=== PATIENT | male | born 1950 | race Caucasian/White ===

== ENCOUNTER 2019-08-12 12:47 | Inpatient (IN) | payer OTHER ==
[2019-08-12 18:09] VITALS: BMI 21.1
--- NOTE | 2019-08-12 19:12 | HP ---
CIWA Score Nausea/Vomitin-Mild Nausea/No Vomiting Muscle Tremors: 4-Moderate,w/Arms Extend Anxiety: 3 Agitation: 2 Paroxysmal Sweats: No Perspiration Orientation: 0-Oriented Tacttile Disturbances: 1-Very Mild Itch/Numbness Auditory Disturbances: 0-None Visual Disturbances: 0-None Headache: 2-Mild CIWA-Ar Total Score: 13 - Admission Criteria OASAS Guidelines: Admission for Medically Managed Detox: Requires at least one of the followin. CIWA greater than 12 2. Seizures within the past 24 hours 3. Delirium tremens within the past 24 hours 4. Hallucinations within the past 24 hours 5. Acute intervention needed for co occurring medical disorder 6. Acute intervention needed for co occurring psychiatric disorder 7. Severe withdrawal that cannot be handled at a lower level of care (continued vomiting, continued diarrhea, abnormal vital signs) requiring intravenous medication and/or fluids 8. Patient presents the following: CIWA greater than 12 Admission Criteria Met: Admission criteria met Admission ROS [facility] Chief Complaint: Edinson Harper is presenting for alcohol detox. Allergies/Adverse Reactions: Allergies Allergy/AdvReac Type Severity Reaction Status Date / Time No Known Allergies Allergy Verified 08/12/19 17:58 History of Present Illness: Edinson Harper is presenting for alcohol detox. Alcohol: 1 pint - 1 L per day. Started drinking at 18. Starting drinking heavily in 40s. Last drink was yesterday. Denies seizures, blackout. States he has fallen during intoxication. Denies head hits. States that he has trouble sleeping and uses alcohol to sleep. States has poor appetite secondary to alcohol use. Denies other substances. Has been detox in the past. Completed rehab. Prior detox and rehab was several months prior at [facility]. Utox: + for MET, BZO Medical History: HTN, Hypothyroid, arthritis, asthma/COPD, gout Social: lives in apartment, has a roommate. Has sister who he is in contact with. Family: Mother due to heart condition Smokinppd since age 29. Exam Limitations: No Limitations - Ebola screening Have you traveled outside of the country in the last 21 days: No Have you had contact with anyone from an Ebola affected area: No Do you have a fever: No - Review of Systems Constitutional: Chills, Loss of Appetite EENT: reports: No Symptoms Reported Respiratory: reports: No Symptoms reported Cardiac: reports: No Symptoms Reported GI: reports: Nausea : reports: No Symptoms Reported Musculoskeletal: reports: No Symptoms Reported Integumentary: reports: Pruritus Neuro: reports: Headache Endocrine: reports: No Symptoms Reported Hematology: reports: No Symptoms Reported Psychiatric: reports: Agitated, Anxious Patient History - Patient Medical History Hx Anemia: No Hx Asthma: Yes Hx Chronic Obstructive Pulmonary Disease (COPD): Yes Hx Cancer: No Hx Cardiac Disorders: No Hx Congestive Heart Failure: No Hx Hypertension: Yes Hx Hypercholesterolemia: No Hx Pacemaker: No HX Cerebrovascular Accident: No Hx Seizures: No Hx Dementia: No Hx Diabetes: No Hx Gastrointestinal Disorders: No Hx Liver Disease: No Hx Genitourinary Disorders: No Hx Sexually Transmitted Disorders: No Hx Renal Disease (ESRD): No Hx Thyroid Disease: Yes (hypothyroid) Hx Human Immunodeficiency Virus (HIV): No Hx Hepatitis C: No Hx Depression: Yes Hx Suicide Attempt: No Hx Bipolar Disorder: No Hx Schizophrenia: No - Patient Surgical History Hx Neurologic Surgery: No Hx Cataract Extraction: No Hx Cardiac Surgery: No Hx Lung Surgery: No Hx Breast Surgery: No Hx Breast Biopsy: No Hx Abdominal Surgery: No Hx Appendectomy: No Hx Cholecystectomy: No Hx Genitourinary Surgery: No Hx Section: No Hx Orthopedic Surgery: No Hx Hysterectomy: No - PPD History Previous Implant?: Yes Documented Results: Negative w/o proof - Smoking Cessation Smoking history: Current every day smoker Have you smoked in the past 12 months: Yes Aproximately how many cigarettes per day: 20 Initiated information on smoking cessation: Yes 'Breaking Loose' booklet given: 08/12/19 - Substance & Tx. History Hx Alcohol Use: Yes Substance Use Type: Alcohol - Substances abused Alcohol Substance route: Oral Frequency: Daily Amount used: 1 pint to 1 liter of rum. Age of first use: 18 Date of last use: 08/12/19 Admission Physical Exam BHS - Vital Signs Vital Signs: Vital Signs - 24 hr 08/12/19 17:57 Temperature 97.3 F L Pulse Rate 85 Respiratory 16 Rate Blood Pressure 148/101 H - Physical General Appearance: Yes: Disheveled, Mild Distress, Tremorous HEENTM: Yes: Hearing grossly Normal, Normocephalic, Normal Voice, CHRISTIAN Respiratory: Yes: Chest Non-Tender, Decreased Breath Sounds, No Respiratory Distress, No Accessory Muscle Use Neck: Yes: No masses,lesions,Nodules, Trachea in good position Breast: Yes: Breast Exam Deferred Cardiology: Yes: Regular Rate, S1, S2, Irregular Abdominal: Yes: Normal Bowel Sounds, Non Tender, Soft, Distended Genitourinary: Yes: Within Normal Limits Musculoskeletal: Yes: full range of Motion Extremities: Yes: Non-Tender, Other (dry planatar side of feet) Neurological: Yes: nursing officer II-XII NML intact, Fully Oriented, Alert, Motor Strength 5/5, Normal Mood/Affect Integumentary: Yes: Dry, Other (dry planatar side of feet) - Diagnostic (1) Alcohol withdrawal Current Visit: Yes Status: Acute (2) Hypertension Current Visit: Yes Status: Acute (3) Hypothyroid Current Visit: Yes Status: Acute (4) Gout Current Visit: Yes Status: Acute (5) Asthma Current Visit: Yes Status: Acute (6) COPD (chronic obstructive pulmonary disease) Current Visit: Yes Status: Acute (7) 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
--- NOTE | 2019-08-12 19:30 | PN ---
Teaching Attending Note Name of Resident: Edinson Guaman ATTENDING PHYSICIAN STATEMENT I saw and evaluated the patient. I reviewed the resident's note and discussed the case with the resident. I agree with the resident's findings and plan as documented. SUBJECTIVE: 68 yo with HT, hypoT, gout, asthma/COPD here for alcohol detox. Started drinking at age 18. Pt drinks several beers a day. [facility]. Says he needs to stop drinking and start eating again- getting his life back. OBJECTIVE: Vital Signs - 24 hr 08/12/19 17:57 Temperature 97.3 F L Pulse Rate 85 Respiratory 16 Rate Blood Pressure 148/101 H tremulous alert and oriented ASSESSMENT AND PLAN: alcohol detox protocol for alcohol use disorder- lower dose of librium- pt elderly and thin habitus
[2019-08-12] MEDS ORDERED: MAGNESIUM CITRATE 300 ML BOTTLE PO PRN (19:43)
[2019-08-12] MEDS ORDERED: MAG HYDROX/AL HYDROX/SIMETH 30 ML UNIT-DOSE CUP PO PRN (19:43)
[2019-08-12] MEDS ORDERED: IBUPROFEN 400 MG TABLET (FP) PO PRN (19:43)
[2019-08-12] MEDS ORDERED: MAGNESIUM HYDROX 2400MG/30ML ORAL SUSPENSION 30 ML CUP PO PRN (19:43)
[2019-08-12] MEDS ORDERED: METHOCARBAMOL 500 MG TABLET PO PRN (19:43)
[2019-08-12] MEDS ORDERED: hydrOXYzine PAMOATE 25 MG CAPSULE (FP) PO PRN (19:43)
[2019-08-12] MEDS ORDERED: MENTHOL/PHENOL 1 EACH UD MM PRN (19:43)
[2019-08-12] MEDS ORDERED: ACETAMINOPHEN 325 MG TABLET (FP) PO PRN ×2 (19:43)
[2019-08-12] MEDS ORDERED: ALBUTEROL SULFATE PO PRN (19:49)
[2019-08-12] MEDS: ATORVASTATIN CA 10 MG TABLET (FP) PO SCH (21:07)
[2019-08-12] MEDS: chlordiazePOXIDE HCL 25 MG CAPSULE PO PRN (21:07)
[2019-08-12] MEDS ORDERED: PATIENT'S OWN MEDICATION (NON-FORMULARY) (Lovastatin [Lovastatin] 20 MG) PO SCH (22:00)
[2019-08-12] MEDS: chlordiazePOXIDE HCL 25 MG CAPSULE PO SCH (22:04)
[2019-08-12] MEDS: CALAMINE 8% TOPICAL LOTION 177 ML BOTTLE TP SCH (22:04)
[2019-08-12] MEDS: THIAMINE HCL 100 MG TABLET (FP) PO SCH (22:04)
[2019-08-13] MEDS: chlordiazePOXIDE HCL 25 MG CAPSULE PO SCH ×4 (07:20→22:00)
[2019-08-13] MEDS: LEVOTHYROXINE NA 88 MCG TABLET (FP) PO SCH (07:21)
[2019-08-13] MEDS ORDERED: metoPROLOL SUCCINATE 25 MG TAB.SR.24H (FP) PO SCH (10:00)
[2019-08-13] MEDS ORDERED: TIOTROPIUM BROMIDE PO SCH (10:00)
[2019-08-13] MEDS: TIOTROPIUM BROMIDE 2.5 MCG (SPIRIVA) RESPIMAT INHALER IH SCH (10:29)
[2019-08-13] MEDS: PRENATAL VITAMINS W/ FOLIC ACID TABLET (FP) PO SCH (10:29)
[2019-08-13] MEDS: ALLOPURINOL 100 MG TABLET (FP) PO SCH (10:29)
[2019-08-13] MEDS: CALAMINE 8% TOPICAL LOTION 177 ML BOTTLE TP SCH ×2 (10:29→22:00)
[2019-08-13] MEDS: NICOTINE 21 MG/24 HOURS TOPICAL PATCH TD SCH (10:30)
[2019-08-13] MEDS: BISMUTH SUBSALICYLATE 524 MG/30 ML UD PO PRN (10:32)
--- NOTE | 2019-08-13 10:42 | EKG ---
Test Reason : Blood Pressure : / mmHG Vent. Rate : 101 BPM Atrial Rate : 101 BPM P-R Int : 124 ms QRS Dur : 084 ms QT Int : 368 ms P-R-T Axes : 085 -88 076 degrees QTc Int : 477 ms SINUS TACHYCARDIA RIGHT ATRIAL ENLARGEMENT LEFT AXIS DEVIATION PULMONARY DISEASE PATTERN ABNORMAL ECG NO PREVIOUS ECGS AVAILABLE Confirmed by LOWELL BRANDON MD ([id number]) on 08/13/2019 10:42:32 AM Referred By: LENARD BLOOD Confirmed By:LOWELL BRANDON MD
[2019-08-13 11:18] LABS: ALBUMIN 3.2 g/dl (3.4-5.0); BILIRUBIN,TOTAL 0.5 mg/dL (0.2-1); BLOOD UREA NITROGEN 19.2 mg/dL (7-18); CALCIUM 8.3 mg/dL (8.5-10.1); CREATININE 2.1 mg/dL (0.55-1.3); POTASSIUM 3.3 mmol/L (3.5-5.1); TOT PROT 6.8 g/dl (6.4-8.2)
[2019-08-13] MEDS ORDERED: DICYCLOMINE HCL 20 MG TABLET PO ONE (11:18)
[2019-08-13] MEDS ORDERED: LOPERAMIDE HCL 2 MG CAPSULE PO ONE ×2 (11:19→16:45)
[2019-08-13 11:23] LABS: HEMOGLOBIN 13.2 GM/dL (11.7-16.9); MCH 32.7 pg (25.7-33.7); MCHC 32.9 g/dl (32.0-35.9); MEAN CELL VOLUME 99.4 fl (80-96); MEAN PLT VOLUME 9.9 fl (7.5-11.1); PLATELET COUNT 127 K/MM3 (134-434); RBC 4.02 M/mm3 (4.00-5.60); RDW 17.5 % (11.9-15.9); WHITE BLOOD COUNT 5.7 K/mm3 (4.0-10.0)
--- NOTE | 2019-08-13 11:23 | PN ---
[facility] CIWA - CIWA Score Nausea/Vomitin-No Nausea/No Vomiting (diarrhea) Muscle Tremors: 4-Moderate,w/Arms Extend Anxiety: 4-Mod. Anxious/Guarded Agitation: 3 Paroxysmal Sweats: 2 Orientation: 1-Uncertain about Date Tacttile Disturbances: 0-None Auditory Disturbances: 0-None Visual Disturbances: 0-None Headache: 0-None Present CIWA-Ar Total Score: 14 S Progress Note (SOAP) Subjective: 68 years old male admitted on 08/12/19 for alcohol withdrawal sx management diarrhea imodium 4 mg x 1 now discontinue MOM and Citrix encourage maalox bentyle 20 mg po x 1 hold metoprolol when systolic below 110 Objective: 08/13/19 11:26 Vital Signs Temperature 98.8 F 08/13/19 09:46 Pulse Rate 54 L 08/13/19 09:46 Respiratory Rate 18 08/13/19 09:46 Blood Pressure 101/71 08/13/19 09:46 O2 Sat by Pulse Oximetry (%) Laboratory Last Values Sodium 136 mmol/L (136-145) 08/13/19 07:45 Potassium 3.3 mmol/L (3.5-5.1) L 08/13/19 07:45 Chloride 97 mmol/L (98-107) L 08/13/19 07:45 Carbon Dioxide 30 mmol/L (21-32) 08/13/19 07:45 Anion Gap 9 MMOL/L (8-16) 08/13/19 07:45 BUN 19.2 mg/dL (7-18) H 08/13/19 07:45 Creatinine 2.1 mg/dL (0.55-1.3) H 08/13/19 07:45 Est GFR (CKD-EPI)AfAm 36.65 08/13/19 07:45 Est GFR (CKD-EPI)NonAf 31.62 08/13/19 07:45 Random Glucose 105 mg/dL (74-106) 08/13/19 07:45 Calcium 8.3 mg/dL (8.5-10.1) L 08/13/19 07:45 Total Bilirubin 0.5 mg/dL (0.2-1) 08/13/19 07:45 AST 29 U/L (15-37) 08/13/19 07:45 ALT 20 U/L (13-61) 08/13/19 07:45 Alkaline Phosphatase 70 U/L (45-117) 08/13/19 07:45 Total Protein 6.8 g/dl (6.4-8.2) 08/13/19 07:45 Albumin 3.2 g/dl (3.4-5.0) L 08/13/19 07:45 lab noted increase oral fluid low K+ K+ supplement Assessment: 08/13/19 11:28 alcohol withdrawal sx bentyl 20 mg po x 1 imodium 4 mg po x 1 Plan: continue librium detox regimen K+ supplement
[2019-08-13] MEDS ORDERED: POTASSIUM CHLORIDE TABS 20 MEQ TABLET.ER (FP) PO SCH (11:30)
[2019-08-13] MEDS: POTASSIUM CHLORIDE ORAL LIQUID 20 MEQ/15 ML PO SCH ×2 (13:39→22:00)
[2019-08-13] MEDS: RANITIDINE HCL 150 MG TABLET (FP) PO SCH ×2 (13:39→22:00)
[2019-08-13] MEDS ORDERED: TRIMETHOBENZAMIDE HCL 200MG/2ML INJ IM ONE (14:00)
--- NOTE | 2019-08-13 18:16 | CONSULT ---
[facility] Psychiatric Consult - Data Date of interview: 08/13/19 Admission source: [facility] Identifying data: First admission to [facility] for this 68 y/o AA male self- referred for detoxification (alcohol). Seen at [address] [place] [address]. Patient is single, no dependents, domiciled, unemployed and supported on SSI benefits. Substance Abuse History: Discussed with the patient. Details in current [facility] report as follows : Smoking history: Current every day smoker. Have you smoked in the past 12 months: Yes. Aproximately how many cigarettes per day: 20. Initiated information on smoking cessation: Yes. 'Breaking Loose' booklet given : 08/12/19. - Substance & Tx. History. Hx Alcohol Use: Yes. Substance Use Type: Alcohol. - Substances abused. Alcohol. Substance route: Oral. Frequency: Daily. Amount used: 1 pint to 1 liter of rum. Age of first use: 18. Date of last use: 08/12/19 Medical History: Medical profile is remarkable for bronchial asthma, hypertension, hypothyroidism, arthritis, COPD and gout. Psychiatric History: No reported history of psychiatric hospitalizations. Patient denies history of suicide attempts. No prior history of treatment with psychotropic medications. Physical/Sexual Abuse/Trauma History: Patient denies. Additional Comment: Urine drug screen results: MET-Methamphetamine, BZO- Benzodiazepines. Noted. Mental Status Exam - Mental Status Exam Alert and Oriented to: Time, Place Cognitive Function: Good Patient Appearance: Unkempt, Disheveled Mood: Withdrawn, Apprehensive (about having sudden bowel movements) Affect: Appropriate, Mood Congruent Patient Behavior: Fatigued, Appropriate, Cooperative Speech Pattern: Clear, Appropriate Voice Loudness: Normal Thought Process: Intact, Goal Oriented Thought Disorder: Not Present Hallucinations: Denies Suicidal Ideation: Denies Homicidal Ideation: Denies Insight/Judgement: Fair Sleep: Fair Appetite: Fair (fair appetite but concerned about eating because of vomiting + diarrhea) Gait/Station: Other (slow and unsteady) Psychiatric Findings - Problem List ([place] 1, 2,3) (1) Alcohol withdrawal Current Visit: Yes Status: Acute (2) Insomnia Current Visit: Yes Status: Chronic - Initial Treatment Plan Initial Treatment Plan: Psychoeducation. Sleep hygiene. Support and reassurance. Detoxification. Insomnia is addressed with melatonin at bedtime. Side effects/benefits reviewed with patient. Gave verbal consent to MD. Diaz.
[2019-08-13] MEDS: ATORVASTATIN CA 10 MG TABLET (FP) PO SCH (21:59)
[2019-08-13] MEDS: THIAMINE HCL 100 MG TABLET (FP) PO SCH (21:59)
[2019-08-14] MEDS: LEVOTHYROXINE NA 88 MCG TABLET (FP) PO SCH (06:06)
[2019-08-14] MEDS: chlordiazePOXIDE HCL 25 MG CAPSULE PO SCH ×4 (06:06→22:04)
[2019-08-14] MEDS: TIOTROPIUM BROMIDE 2.5 MCG (SPIRIVA) RESPIMAT INHALER IH SCH (10:54)
[2019-08-14] MEDS: PRENATAL VITAMINS W/ FOLIC ACID TABLET (FP) PO SCH (10:55)
[2019-08-14] MEDS: NICOTINE 21 MG/24 HOURS TOPICAL PATCH TD SCH (10:55)
[2019-08-14] MEDS: POTASSIUM CHLORIDE ORAL LIQUID 20 MEQ/15 ML PO SCH ×2 (10:55→22:07)
[2019-08-14] MEDS: RANITIDINE HCL 150 MG TABLET (FP) PO SCH ×2 (10:56→22:04)
[2019-08-14] MEDS: metoPROLOL SUCCINATE 25 MG TAB.SR.24H (FP) PO SCH (10:56)
[2019-08-14] MEDS: CALAMINE 8% TOPICAL LOTION 177 ML BOTTLE TP SCH ×2 (10:56→22:06)
[2019-08-14] MEDS: ALLOPURINOL 100 MG TABLET (FP) PO SCH (10:56)
[2019-08-14] MEDS: BISMUTH SUBSALICYLATE 524 MG/30 ML UD PO PRN ×2 (11:09→14:04)
--- NOTE | 2019-08-14 11:15 | PN ---
S CIWA - CIWA Score Nausea/Vomitin-Mild Nausea/No Vomiting Muscle Tremors: 2 Anxiety: 2 Agitation: 2 Paroxysmal Sweats: 1-Minimal Palms Moist Orientation: 0-Oriented Tacttile Disturbances: 1-Very Mild Itch/Numbness Auditory Disturbances: 0-None Visual Disturbances: 0-None Headache: 2-Mild CIWA-Ar Total Score: 11 S Progress Note (SOAP) Subjective: report last vomited "yesterday" last diarrhea "last night" ate breakfast request diatician diatician referral Objective: 08/14/19 11:17 Vital Signs Temperature 97.4 F L 08/14/19 09:23 Pulse Rate 102 H 08/14/19 09:23 Respiratory Rate 20 08/14/19 09:23 Blood Pressure 95/63 08/14/19 09:23 O2 Sat by Pulse Oximetry (%) Laboratory Last Values WBC 5.7 K/mm3 (4.0-10.0) 08/13/19 07:45 RBC 4.02 M/mm3 (4.00-5.60) 08/13/19 07:45 Hgb 13.2 GM/dL (11.7-16.9) 08/13/19 07:45 Hct 40.0 % (35.4-49) 08/13/19 07:45 MCV 99.4 fl (80-96) H 08/13/19 07:45 MCH 32.7 pg (25.7-33.7) 08/13/19 07:45 MCHC 32.9 g/dl (32.0-35.9) 08/13/19 07:45 RDW 17.5 % (11.9-15.9) H 08/13/19 07:45 Plt Count 127 K/MM3 (134-434) L 08/13/19 07:45 MPV 9.9 fl (7.5-11.1) 08/13/19 07:45 Sodium 136 mmol/L (136-145) 08/13/19 07:45 Potassium 3.3 mmol/L (3.5-5.1) L 08/13/19 07:45 Chloride 97 mmol/L (98-107) L 08/13/19 07:45 Carbon Dioxide 30 mmol/L (21-32) 08/13/19 07:45 Anion Gap 9 MMOL/L (8-16) 08/13/19 07:45 BUN 19.2 mg/dL (7-18) H 08/13/19 07:45 Creatinine 2.1 mg/dL (0.55-1.3) H 08/13/19 07:45 Est GFR (CKD-EPI)AfAm 36.65 08/13/19 07:45 Est GFR (CKD-EPI)NonAf 31.62 08/13/19 07:45 Random Glucose 105 mg/dL (74-106) 08/13/19 07:45 Calcium 8.3 mg/dL (8.5-10.1) L 08/13/19 07:45 Total Bilirubin 0.5 mg/dL (0.2-1) 08/13/19 07:45 AST 29 U/L (15-37) 08/13/19 07:45 ALT 20 U/L (13-61) 08/13/19 07:45 Alkaline Phosphatase 70 U/L (45-117) 08/13/19 07:45 Ammonia 41.40 umol/L (11-32) H 08/13/19 11:45 Total Protein 6.8 g/dl (6.4-8.2) 08/13/19 07:45 Albumin 3.2 g/dl (3.4-5.0) L 08/13/19 07:45 RPR Titer Nonreactive (NONREACTIVE) 08/13/19 07:45 HIV 1&2 Antibody Screen Negative 08/13/19 07:45 HIV P24 Antigen Negative 08/13/19 07:45 lab noted low K+ K+ supplement 08/14/19 11:18 repeat K+ Assessment: 08/14/19 11:19 alcohol withdrawal sx Plan: continue librium detox
[2019-08-14] MEDS: chlordiazePOXIDE HCL 25 MG CAPSULE PO PRN (14:47)
[2019-08-14] MEDS: THIAMINE HCL 100 MG TABLET (FP) PO SCH (22:04)
[2019-08-14] MEDS: MELATONIN 5 MG TABLETS PO PRN (22:04)
[2019-08-14] MEDS: ATORVASTATIN CA 10 MG TABLET (FP) PO SCH (22:04)
[2019-08-15] MEDS ORDERED: chlordiazePOXIDE HCL 10 MG CAPSULE PO PRN
[2019-08-15] MEDS: chlordiazePOXIDE HCL 10 MG CAPSULE PO SCH ×4 (05:54→22:05)
[2019-08-15] MEDS: LEVOTHYROXINE NA 88 MCG TABLET (FP) PO SCH (06:04)
[2019-08-15] MEDS: POTASSIUM CHLORIDE ORAL LIQUID 20 MEQ/15 ML PO SCH ×2 (10:29→22:04)
[2019-08-15] MEDS: ALLOPURINOL 100 MG TABLET (FP) PO SCH (10:29)
[2019-08-15] MEDS: TIOTROPIUM BROMIDE 2.5 MCG (SPIRIVA) RESPIMAT INHALER IH SCH (10:29)
[2019-08-15] MEDS: NICOTINE 21 MG/24 HOURS TOPICAL PATCH TD SCH (10:30)
[2019-08-15] MEDS: RANITIDINE HCL 150 MG TABLET (FP) PO SCH ×2 (10:30→22:05)
[2019-08-15] MEDS: CALAMINE 8% TOPICAL LOTION 177 ML BOTTLE TP SCH ×2 (10:30→22:04)
[2019-08-15] MEDS: PRENATAL VITAMINS W/ FOLIC ACID TABLET (FP) PO SCH (10:30)
[2019-08-15] MEDS: metoPROLOL SUCCINATE 25 MG TAB.SR.24H (FP) PO SCH (10:32)
--- NOTE | 2019-08-15 14:23 | PN ---
[facility] CIWA - CIWA Score Nausea/Vomitin Muscle Tremors: 3 Anxiety: 2 Agitation: 0-Normal Activity Paroxysmal Sweats: 1-Minimal Palms Moist Orientation: 0-Oriented Tacttile Disturbances: 1-Very Mild Itch/Numbness Auditory Disturbances: 0-None Visual Disturbances: 0-None Headache: 1-Very Mild CIWA-Ar Total Score: 11 S Progress Note (SOAP) Subjective: c/o of nausea, vomiting, diarrhea, interrupted sleep and body aches Objective: Vital Signs Temperature 97.2 F L 08/15/19 13:25 Pulse Rate 82 08/15/19 13:25 Respiratory Rate 18 08/15/19 13:25 Blood Pressure 91/60 08/15/19 13:25 O2 Sat by Pulse Oximetry (%) Laboratory Last Values WBC 5.7 K/mm3 (4.0-10.0) 08/13/19 07:45 RBC 4.02 M/mm3 (4.00-5.60) 08/13/19 07:45 Hgb 13.2 GM/dL (11.7-16.9) 08/13/19 07:45 Hct 40.0 % (35.4-49) 08/13/19 07:45 MCV 99.4 fl (80-96) H 08/13/19 07:45 MCH 32.7 pg (25.7-33.7) 08/13/19 07:45 MCHC 32.9 g/dl (32.0-35.9) 08/13/19 07:45 RDW 17.5 % (11.9-15.9) H 08/13/19 07:45 Plt Count 127 K/MM3 (134-434) L 08/13/19 07:45 MPV 9.9 fl (7.5-11.1) 08/13/19 07:45 Sodium 136 mmol/L (136-145) 08/13/19 07:45 Potassium 3.3 mmol/L (3.5-5.1) L 08/13/19 07:45 Chloride 97 mmol/L (98-107) L 08/13/19 07:45 Carbon Dioxide 30 mmol/L (21-32) 08/13/19 07:45 Anion Gap 9 MMOL/L (8-16) 08/13/19 07:45 BUN 19.2 mg/dL (7-18) H 08/13/19 07:45 Creatinine 2.1 mg/dL (0.55-1.3) H 08/13/19 07:45 Est GFR (CKD-EPI)AfAm 36.65 08/13/19 07:45 Est GFR (CKD-EPI)NonAf 31.62 08/13/19 07:45 Random Glucose 105 mg/dL (74-106) 08/13/19 07:45 Calcium 8.3 mg/dL (8.5-10.1) L 08/13/19 07:45 Total Bilirubin 0.5 mg/dL (0.2-1) 08/13/19 07:45 AST 29 U/L (15-37) 08/13/19 07:45 ALT 20 U/L (13-61) 08/13/19 07:45 Alkaline Phosphatase 70 U/L (45-117) 08/13/19 07:45 Ammonia 41.40 umol/L (11-32) H 08/13/19 11:45 Total Protein 6.8 g/dl (6.4-8.2) 08/13/19 07:45 Albumin 3.2 g/dl (3.4-5.0) L 08/13/19 07:45 RPR Titer Nonreactive (NONREACTIVE) 08/13/19 07:45 HIV 1&2 Antibody Screen Negative 08/13/19 07:45 HIV P24 Antigen Negative 08/13/19 07:45 Assessment: 08/15/19 14:21 AOx3 no acute distress EENT WNL no adventitious breath sounds full ROM, steady gait, ambulating in the unit withdrawal sx Plan: increase PO fluids educated on MAT, patient reports interest in inpatient rehab for his after care continue detox continue to monitor
[2019-08-15] MEDS: ATORVASTATIN CA 10 MG TABLET (FP) PO SCH (22:04)
[2019-08-15] MEDS: MELATONIN 5 MG TABLETS PO PRN (22:05)
[2019-08-15] MEDS: THIAMINE HCL 100 MG TABLET (FP) PO SCH (22:05)
[2019-08-16] MEDS: chlordiazePOXIDE HCL 10 MG CAPSULE PO SCH ×2 (06:20→17:23)
[2019-08-16] MEDS: LEVOTHYROXINE NA 88 MCG TABLET (FP) PO SCH (06:20)
[2019-08-16] MEDS: PRENATAL VITAMINS W/ FOLIC ACID TABLET (FP) PO SCH (10:29)
[2019-08-16] MEDS: metoPROLOL SUCCINATE 25 MG TAB.SR.24H (FP) PO SCH (10:29)
[2019-08-16] MEDS: RANITIDINE HCL 150 MG TABLET (FP) PO SCH ×2 (10:29→22:13)
[2019-08-16] MEDS: TIOTROPIUM BROMIDE 2.5 MCG (SPIRIVA) RESPIMAT INHALER IH SCH (10:29)
[2019-08-16] MEDS: NICOTINE 21 MG/24 HOURS TOPICAL PATCH TD SCH (10:30)
[2019-08-16] MEDS: CALAMINE 8% TOPICAL LOTION 177 ML BOTTLE TP SCH ×2 (10:30→22:14)
[2019-08-16] MEDS: POTASSIUM CHLORIDE ORAL LIQUID 20 MEQ/15 ML PO SCH (10:31)
[2019-08-16] MEDS: ALLOPURINOL 100 MG TABLET (FP) PO SCH (10:31)
--- NOTE | 2019-08-16 15:08 | PN ---
S CIWA - CIWA Score Nausea/Vomitin (Diarrhea.) Muscle Tremors: None Anxiety: 3 Agitation: 2 Paroxysmal Sweats: No Perspiration Orientation: 0-Oriented Tacttile Disturbances: 0-None Auditory Disturbances: 1-Very Mild Visual Disturbances: 2-Mild Sensitivity Headache: 0-None Present CIWA-Ar Total Score: 10 S Progress Note (SOAP) Subjective: Body Aches, Interrupted Sleep, Diarrhea (Subsiding). Objective: PATIENT A & O X 3, OBSERVED AMBULATING ON DETOX UNIT UNASSISTED. IN NO ACUTE DISTRESS. 08/16/19 15:09 Vital Signs Temperature 97.9 F 08/16/19 13:20 Pulse Rate 90 08/16/19 13:20 Respiratory Rate 16 08/16/19 13:20 Blood Pressure 99/66 08/16/19 13:20 O2 Sat by Pulse Oximetry (%) Laboratory Tests 08/13/19 08/13/19 08/13/19 07:45 07:45 07:45 WBC 5.7 RBC 4.02 Hgb 13.2 Hct 40.0 MCV 99.4 H MCH 32.7 MCHC 32.9 RDW 17.5 H Plt Count 127 L MPV 9.9 Sodium Potassium Chloride Carbon Dioxide Anion Gap BUN Creatinine Est GFR (CKD-EPI)AfAm Est GFR (CKD-EPI)NonAf Random Glucose Calcium Total Bilirubin AST ALT Alkaline Phosphatase Ammonia Total Protein Albumin RPR Titer HIV 1&2 Antibody Screen Negative HIV P24 Antigen Negative TB (QFT) Incubation TB Test (QFT) Nil 0.03 TB Test (QFT) Mitogen >10.00 TB Test (QFT) Antigen 0.03 TB Test (QFT) Negative TB Positive Criteria 08/13/19 08/13/19 08/13/19 07:45 07:45 11:45 WBC RBC Hgb Hct MCV MCH MCHC RDW Plt Count MPV Sodium 136 Potassium 3.3 L Chloride 97 L Carbon Dioxide 30 Anion Gap 9 BUN 19.2 H Creatinine 2.1 H Est GFR (CKD-EPI)AfAm 36.65 Est GFR (CKD-EPI)NonAf 31.62 Random Glucose 105 Calcium 8.3 L Total Bilirubin 0.5 AST 29 ALT 20 Alkaline Phosphatase 70 Ammonia 41.40 H Total Protein 6.8 Albumin 3.2 L RPR Titer Nonreactive HIV 1&2 Antibody Screen HIV P24 Antigen TB (QFT) Incubation TB Test (QFT) Nil TB Test (QFT) Mitogen TB Test (QFT) Antigen TB Test (QFT) TB Positive Criteria 08/16/19 07:40 WBC RBC Hgb Hct MCV MCH MCHC RDW Plt Count MPV Sodium Potassium 4.2 Chloride Carbon Dioxide Anion Gap BUN Creatinine Est GFR (CKD-EPI)AfAm Est GFR (CKD-EPI)NonAf Random Glucose Calcium Total Bilirubin AST ALT Alkaline Phosphatase Ammonia Total Protein Albumin RPR Titer HIV 1&2 Antibody Screen HIV P24 Antigen TB (QFT) Incubation TB Test (QFT) Nil TB Test (QFT) Mitogen TB Test (QFT) Antigen TB Test (QFT) TB Positive Criteria LABS NOTED. RESULT OF REPEAT K LEVEL NOTED. K-DUR PO D/C'D. 08/16/19 15:12 Assessment: 08/16/19 15:11 WITHDRAWAL SYMPTOMS. THROMBOCYTOPENIA. AZOTEMIA. Plan: CONTINUE DETOX. PATIENT SCHEDULED FOR D/C FROM DETOX UNIT TOMORROW.
[2019-08-16] MEDS ORDERED: WITCH HAZEL 50% (TUCKS) 40 PAD/JAR PAD TP PRN (16:11)
[2019-08-16] MEDS ORDERED: BENZOCAINE 28 GM HEMORRHOIDAL OINTMENT PR PRN (16:11)
[2019-08-16] MEDS: ATORVASTATIN CA 10 MG TABLET (FP) PO SCH (22:13)
[2019-08-16] MEDS: THIAMINE HCL 100 MG TABLET (FP) PO SCH (22:13)
[2019-08-16] MEDS: MELATONIN 5 MG TABLETS PO PRN (22:14)
[2019-08-17] MEDS ORDERED: chlordiazePOXIDE HCL 10 MG CAPSULE PO ONE (05:00)
[2019-08-17] MEDS: LEVOTHYROXINE NA 88 MCG TABLET (FP) PO SCH (07:01)
[2019-08-17] MEDS: RANITIDINE HCL 150 MG TABLET (FP) PO SCH ×2 (10:34→21:27)
[2019-08-17] MEDS: NICOTINE 21 MG/24 HOURS TOPICAL PATCH TD SCH (10:34)
[2019-08-17] MEDS: metoPROLOL SUCCINATE 25 MG TAB.SR.24H (FP) PO SCH (10:34)
[2019-08-17] MEDS: ALLOPURINOL 100 MG TABLET (FP) PO SCH (10:34)
[2019-08-17] MEDS: PRENATAL VITAMINS W/ FOLIC ACID TABLET (FP) PO SCH (10:34)
[2019-08-17] MEDS: TIOTROPIUM BROMIDE 2.5 MCG (SPIRIVA) RESPIMAT INHALER IH SCH (10:34)
[2019-08-17] MEDS: CALAMINE 8% TOPICAL LOTION 177 ML BOTTLE TP SCH ×2 (10:36→21:26)
--- NOTE | 2019-08-17 10:54 | HP ---
ANA MARÍA GOMEZ Rehab Assess/Revision - Admission History Admitted to Rehab from: [facility] Date of Admission to Rehab: 08/17/19 - Vital signs Vital Signs: Vital Signs Period Temp Pulse Resp BP Sys/Magana Pulse Ox Last 24 Hr 96.5 F-98.8 F 68-90 16-18 96-121/65-78 - Findings Detox History & Physical reviewed: Yes Concur with findings: Yes Comments/Additional Findings: trasnferred from detox to rehab admission as per protocol Inpatient Rehab Admission - Rehab Decision to Admit Inpatient rehab admission?: Yes - Initial Determination Are CD services needed?: Yes Free of communicable disease: Yes Not in need of hospitalization: Yes - Rehab Admission Criteria Previous failed treatment: Yes Poor recovery environment: Yes Comorbidities: Yes Lacks judgement: Yes Patient is meeting Inpatient Rehab admission criteria:: Yes
[2019-08-17] MEDS: THIAMINE HCL 100 MG TABLET (FP) PO SCH (21:27)
[2019-08-17] MEDS: ATORVASTATIN CA 10 MG TABLET (FP) PO SCH (21:27)
[2019-08-17] MEDS: MELATONIN 5 MG TABLETS PO PRN (21:28)
[2019-08-18] MEDS: LEVOTHYROXINE NA 88 MCG TABLET (FP) PO SCH ×2 (08:23→10:40)
[2019-08-18] MEDS: RANITIDINE HCL 150 MG TABLET (FP) PO SCH ×2 (10:39→21:29)
[2019-08-18] MEDS: PRENATAL VITAMINS W/ FOLIC ACID TABLET (FP) PO SCH (10:39)
[2019-08-18] MEDS: CALAMINE 8% TOPICAL LOTION 177 ML BOTTLE TP SCH ×2 (10:41→21:28)
[2019-08-18] MEDS: NICOTINE 21 MG/24 HOURS TOPICAL PATCH TD SCH (10:41)
[2019-08-18] MEDS: TIOTROPIUM BROMIDE 2.5 MCG (SPIRIVA) RESPIMAT INHALER IH SCH (10:41)
[2019-08-18] MEDS: ALBUTEROL SO4 8 GM HFA INHALER IH PRN (10:49)
[2019-08-18] MEDS: ALLOPURINOL 100 MG TABLET (FP) PO SCH (12:31)
[2019-08-18] MEDS: metoPROLOL SUCCINATE 25 MG TAB.SR.24H (FP) PO SCH (12:31)
[2019-08-18] MEDS: HYDROCORTISONE 2.5% TOPICAL CREAM 30 GM TUBE TP SCH (21:27)
[2019-08-18] MEDS: ATORVASTATIN CA 10 MG TABLET (FP) PO SCH (21:28)
[2019-08-18] MEDS: THIAMINE HCL 100 MG TABLET (FP) PO SCH (21:29)
[2019-08-18] MEDS: MELATONIN 5 MG TABLETS PO PRN (21:29)
[2019-08-18] MEDS ORDERED: HYDROCORTISONE 2.5% TOPICAL CREAM 30 GM TUBE TP SCH (22:00)
[2019-08-19] MEDS: CALAMINE 8% TOPICAL LOTION 177 ML BOTTLE TP SCH ×2 (10:14→21:25)
[2019-08-19] MEDS: NICOTINE 21 MG/24 HOURS TOPICAL PATCH TD SCH (10:15)
[2019-08-19] MEDS: HYDROCORTISONE 2.5% TOPICAL CREAM 30 GM TUBE TP SCH ×2 (10:15→21:25)
[2019-08-19] MEDS: RANITIDINE HCL 150 MG TABLET (FP) PO SCH ×2 (10:15→21:26)
[2019-08-19] MEDS: PRENATAL VITAMINS W/ FOLIC ACID TABLET (FP) PO SCH (10:15)
[2019-08-19] MEDS: TIOTROPIUM BROMIDE 2.5 MCG (SPIRIVA) RESPIMAT INHALER IH SCH (10:16)
[2019-08-19] MEDS: LEVOTHYROXINE NA 88 MCG TABLET (FP) PO SCH (10:16)
[2019-08-19] MEDS: metoPROLOL SUCCINATE 25 MG TAB.SR.24H (FP) PO SCH (10:17)
[2019-08-19] MEDS: ALLOPURINOL 100 MG TABLET (FP) PO SCH (10:19)
[2019-08-19] MEDS: ATORVASTATIN CA 10 MG TABLET (FP) PO SCH (21:26)
[2019-08-19] MEDS: MELATONIN 5 MG TABLETS PO PRN (21:26)
[2019-08-19] MEDS: THIAMINE HCL 100 MG TABLET (FP) PO SCH (21:26)
[2019-08-20] MEDS: LEVOTHYROXINE NA 88 MCG TABLET (FP) PO SCH (06:07)
[2019-08-20] MEDS: PRENATAL VITAMINS W/ FOLIC ACID TABLET (FP) PO SCH (10:12)
[2019-08-20] MEDS: NICOTINE 21 MG/24 HOURS TOPICAL PATCH TD SCH (10:12)
[2019-08-20] MEDS: ALLOPURINOL 100 MG TABLET (FP) PO SCH (10:12)
[2019-08-20] MEDS: metoPROLOL SUCCINATE 25 MG TAB.SR.24H (FP) PO SCH (10:12)
[2019-08-20] MEDS: TIOTROPIUM BROMIDE 2.5 MCG (SPIRIVA) RESPIMAT INHALER IH SCH (10:12)
[2019-08-20] MEDS: RANITIDINE HCL 150 MG TABLET (FP) PO SCH ×2 (10:12→21:28)
[2019-08-20] MEDS: HYDROCORTISONE 2.5% TOPICAL CREAM 30 GM TUBE TP SCH ×2 (10:14→21:27)
[2019-08-20] MEDS: CALAMINE 8% TOPICAL LOTION 177 ML BOTTLE TP SCH ×2 (10:14→21:27)
[2019-08-20] MEDS: BISMUTH SUBSALICYLATE 524 MG/30 ML UD PO PRN (10:26)
[2019-08-20] MEDS: THIAMINE HCL 100 MG TABLET (FP) PO SCH (21:28)
[2019-08-20] MEDS: ATORVASTATIN CA 10 MG TABLET (FP) PO SCH (21:28)
[2019-08-21] MEDS: LEVOTHYROXINE NA 88 MCG TABLET (FP) PO SCH (06:07)
[2019-08-21] MEDS: metoPROLOL SUCCINATE 25 MG TAB.SR.24H (FP) PO SCH (10:13)
[2019-08-21] MEDS: RANITIDINE HCL 150 MG TABLET (FP) PO SCH ×2 (10:13→21:38)
[2019-08-21] MEDS: TIOTROPIUM BROMIDE 2.5 MCG (SPIRIVA) RESPIMAT INHALER IH SCH (10:13)
[2019-08-21] MEDS: ALLOPURINOL 100 MG TABLET (FP) PO SCH (10:13)
[2019-08-21] MEDS: NICOTINE 21 MG/24 HOURS TOPICAL PATCH TD SCH (10:14)
[2019-08-21] MEDS: PRENATAL VITAMINS W/ FOLIC ACID TABLET (FP) PO SCH (10:14)
[2019-08-21] MEDS: CALAMINE 8% TOPICAL LOTION 177 ML BOTTLE TP SCH ×2 (10:17→21:35)
[2019-08-21] MEDS: HYDROCORTISONE 2.5% TOPICAL CREAM 30 GM TUBE TP SCH ×2 (10:18→21:35)
[2019-08-21 17:11] LABS: URINE APPEARANCE CLEAR; URINE BILIRUBIN NEGATIVE (NEGATIVE); URINE COLOR YELLOW; URINE GLUCOSE (UA) NEGATIVE (NEGATIVE); URINE KETONE NEGATIVE (NEGATIVE); URINE LEUK ESTERASE NEGATIVE (NEGATIVE); URINE NITRITE NEGATIVE (NEGATIVE); URINE PROTEIN NEGATIVE (NEGATIVE); URINE UROBILINOGEN 0.2 mg/dL (0.2-1.0)
[2019-08-21] MEDS: THIAMINE HCL 100 MG TABLET (FP) PO SCH (21:37)
[2019-08-21] MEDS: ATORVASTATIN CA 10 MG TABLET (FP) PO SCH (21:37)
[2019-08-21] MEDS: BISMUTH SUBSALICYLATE 524 MG/30 ML UD PO PRN (22:49)
[2019-08-22] MEDS: LEVOTHYROXINE NA 88 MCG TABLET (FP) PO SCH (06:35)
[2019-08-22] MEDS: ALLOPURINOL 100 MG TABLET (FP) PO SCH (10:36)
[2019-08-22] MEDS: RANITIDINE HCL 150 MG TABLET (FP) PO SCH ×2 (10:37→21:26)
[2019-08-22] MEDS: metoPROLOL SUCCINATE 25 MG TAB.SR.24H (FP) PO SCH (10:37)
[2019-08-22] MEDS: PRENATAL VITAMINS W/ FOLIC ACID TABLET (FP) PO SCH (10:37)
[2019-08-22] MEDS: TIOTROPIUM BROMIDE 2.5 MCG (SPIRIVA) RESPIMAT INHALER IH SCH (10:37)
[2019-08-22] MEDS: HYDROCORTISONE 2.5% TOPICAL CREAM 30 GM TUBE TP SCH ×2 (10:38→21:27)
[2019-08-22] MEDS: CALAMINE 8% TOPICAL LOTION 177 ML BOTTLE TP SCH ×2 (10:39→21:27)
[2019-08-22] MEDS: NICOTINE 21 MG/24 HOURS TOPICAL PATCH TD SCH (10:39)
--- NOTE | 2019-08-22 13:41 | PN ---
S Progress Note (SOAP) Subjective: patient c/o diarrhea. patient states that it is explosive,has had several incidents of diarrhea in detox and rehab. Has had a hx of colonoscopy, with only hemorrhoids identified. States that he was given something in detox that stopped the diarrhea, but was not given in rehab. Objective: General: no apparent distress, but is experiencing some anxiety. HEENT: normocephalic ABD: soft, non-tender, +BS, distended. Neuro: CN 2-12 intact, no neurological deficits 08/22/19 13:37 08/22/19 13:40 Assessment: Diarrhea 08/22/19 13:41 Plan: Review of his medications in Detox revealed he was on Bentyl and imodium. This was re-started today. Advised patient to make sure he asked for those medications as he needs them.
[2019-08-22] MEDS: LOPERAMIDE HCL 2 MG CAPSULE PO PRN ×2 (14:14→21:29)
[2019-08-22] MEDS: DICYCLOMINE HCL 10 MG CAPSULE PO PRN (15:01)
[2019-08-22 15:08] LABS: HEMATOCRIT 33.7 % (35.4-49); MCH 32.7 pg (25.7-33.7); MCHC 32.8 g/dl (32.0-35.9); MEAN CELL VOLUME 99.8 fl (80-96); MEAN PLT VOLUME 8.9 fl (7.5-11.1); PLATELET COUNT 375 K/MM3 (134-434); RBC 3.37 M/mm3 (4.00-5.60); RDW 17.3 % (11.9-15.9); WHITE BLOOD COUNT 6.8 K/mm3 (4.0-10.0)
[2019-08-22 15:12] LABS: ALBUMIN 2.9 g/dl (3.4-5.0); BILIRUBIN,TOTAL 0.5 mg/dL (0.2-1); CALCIUM 8.2 mg/dL (8.5-10.1); CREATININE 0.9 mg/dL (0.55-1.3); POTASSIUM 4.2 mmol/L (3.5-5.1); TOT PROT 6.1 g/dl (6.4-8.2)
[2019-08-22] MEDS: ATORVASTATIN CA 10 MG TABLET (FP) PO SCH (21:26)
[2019-08-22] MEDS: THIAMINE HCL 100 MG TABLET (FP) PO SCH (21:26)
[2019-08-23] MEDS: LOPERAMIDE HCL 2 MG CAPSULE PO PRN ×2 (06:11→19:51)
[2019-08-23] MEDS: LEVOTHYROXINE NA 88 MCG TABLET (FP) PO SCH (06:12)
[2019-08-23] MEDS: metoPROLOL SUCCINATE 25 MG TAB.SR.24H (FP) PO SCH (10:06)
[2019-08-23] MEDS: ALLOPURINOL 100 MG TABLET (FP) PO SCH (10:06)
[2019-08-23] MEDS: RANITIDINE HCL 150 MG TABLET (FP) PO SCH ×2 (10:06→21:29)
[2019-08-23] MEDS: PRENATAL VITAMINS W/ FOLIC ACID TABLET (FP) PO SCH (10:06)
[2019-08-23] MEDS: TIOTROPIUM BROMIDE 2.5 MCG (SPIRIVA) RESPIMAT INHALER IH SCH (10:06)
[2019-08-23] MEDS: NICOTINE 21 MG/24 HOURS TOPICAL PATCH TD SCH (10:07)
[2019-08-23] MEDS: HYDROCORTISONE 2.5% TOPICAL CREAM 30 GM TUBE TP SCH ×2 (10:07→21:30)
[2019-08-23] MEDS: CALAMINE 8% TOPICAL LOTION 177 ML BOTTLE TP SCH ×2 (10:07→21:30)
[2019-08-23] MEDS: DICYCLOMINE HCL 10 MG CAPSULE PO PRN (10:11)
[2019-08-23] MEDS: THIAMINE HCL 100 MG TABLET (FP) PO SCH (21:29)
[2019-08-23] MEDS: ATORVASTATIN CA 10 MG TABLET (FP) PO SCH (21:29)
[2019-08-24] MEDS: LEVOTHYROXINE NA 88 MCG TABLET (FP) PO SCH (06:23)
[2019-08-24] MEDS: LOPERAMIDE HCL 2 MG CAPSULE PO PRN ×3 (06:24→21:17)
[2019-08-24] MEDS: PRENATAL VITAMINS W/ FOLIC ACID TABLET (FP) PO SCH (10:20)
[2019-08-24] MEDS: ALLOPURINOL 100 MG TABLET (FP) PO SCH (10:20)
[2019-08-24] MEDS: metoPROLOL SUCCINATE 25 MG TAB.SR.24H (FP) PO SCH (10:20)
[2019-08-24] MEDS: NICOTINE 21 MG/24 HOURS TOPICAL PATCH TD SCH (10:20)
[2019-08-24] MEDS: RANITIDINE HCL 150 MG TABLET (FP) PO SCH ×2 (10:20→21:17)
[2019-08-24] MEDS: DICYCLOMINE HCL 10 MG CAPSULE PO PRN ×2 (10:21→21:19)
[2019-08-24] MEDS: CALAMINE 8% TOPICAL LOTION 177 ML BOTTLE TP SCH ×2 (10:21→21:23)
[2019-08-24] MEDS: HYDROCORTISONE 2.5% TOPICAL CREAM 30 GM TUBE TP SCH ×2 (10:22→21:23)
[2019-08-24] MEDS: TIOTROPIUM BROMIDE 2.5 MCG (SPIRIVA) RESPIMAT INHALER IH SCH (10:23)
[2019-08-24] MEDS: THIAMINE HCL 100 MG TABLET (FP) PO SCH (21:17)
[2019-08-24] MEDS: ATORVASTATIN CA 10 MG TABLET (FP) PO SCH (21:17)
[2019-08-24] MEDS: MELATONIN 5 MG TABLETS PO PRN (21:20)
[2019-08-25] MEDS: LEVOTHYROXINE NA 88 MCG TABLET (FP) PO SCH (06:27)
[2019-08-25] MEDS: DICYCLOMINE HCL 10 MG CAPSULE PO PRN (06:27)
[2019-08-25] MEDS: LOPERAMIDE HCL 2 MG CAPSULE PO PRN (07:28)
[2019-08-25] MEDS: ALLOPURINOL 100 MG TABLET (FP) PO SCH (10:11)
[2019-08-25] MEDS: PRENATAL VITAMINS W/ FOLIC ACID TABLET (FP) PO SCH (10:11)
[2019-08-25] MEDS: metoPROLOL SUCCINATE 25 MG TAB.SR.24H (FP) PO SCH (10:11)
[2019-08-25] MEDS: RANITIDINE HCL 150 MG TABLET (FP) PO SCH ×2 (10:11→21:32)
[2019-08-25] MEDS: NICOTINE 21 MG/24 HOURS TOPICAL PATCH TD SCH (10:13)
[2019-08-25] MEDS: CALAMINE 8% TOPICAL LOTION 177 ML BOTTLE TP SCH ×2 (10:13→21:31)
[2019-08-25] MEDS: HYDROCORTISONE 2.5% TOPICAL CREAM 30 GM TUBE TP SCH ×2 (10:14→21:31)
[2019-08-25] MEDS: TIOTROPIUM BROMIDE 2.5 MCG (SPIRIVA) RESPIMAT INHALER IH SCH (10:15)
[2019-08-25] MEDS ORDERED: DIPHENOXYLATE 2.5/ATROPINE.025 1 COMBO TABLET PO ONE (11:21)
--- NOTE | 2019-08-25 11:23 | PN ---
[facility] Progress Note Note: Pt continues to c/o watery stool today since from detox unit. Pt was seen last Sunday for same complaint and recommended to continue with imodium and bentyl was ordered for spasms. Pt denies nausea, vomiting or fever but worried he has been having this for a long time now. Vital Signs - 24 hr 08/25/19 08/25/19 08/25/19 00:30 03:30 06:53 Temperature 98.1 F Pulse Rate 86 Respiratory 18 18 18 Rate Blood Pressure 112/73 Laboratory Tests 08/13/19 08/13/19 08/13/19 07:45 07:45 07:45 WBC 5.7 RBC 4.02 Hgb 13.2 Hct 40.0 MCV 99.4 H MCH 32.7 MCHC 32.9 RDW 17.5 H Plt Count 127 L MPV 9.9 Sodium Potassium Chloride Carbon Dioxide Anion Gap BUN Creatinine Est GFR (CKD-EPI)AfAm Est GFR (CKD-EPI)NonAf Random Glucose Calcium Total Bilirubin AST ALT Alkaline Phosphatase Ammonia Total Protein Albumin Urine Color Urine Appearance Urine pH Ur Specific [place] Urine Protein Urine Glucose (UA) Urine Ketones Urine Blood Urine Nitrite Urine Bilirubin Urine Urobilinogen Ur Leukocyte Esterase RPR Titer HIV 1&2 Antibody Screen Negative HIV P24 Antigen Negative TB (QFT) Incubation TB Test (QFT) Nil 0.03 TB Test (QFT) Mitogen >10.00 TB Test (QFT) Antigen 0.03 TB Test (QFT) Negative TB Positive Criteria 08/13/19 08/13/19 08/13/19 07:45 07:45 11:45 WBC RBC Hgb Hct MCV MCH MCHC RDW Plt Count MPV Sodium 136 Potassium 3.3 L Chloride 97 L Carbon Dioxide 30 Anion Gap 9 BUN 19.2 H Creatinine 2.1 H Est GFR (CKD-EPI)AfAm 36.65 Est GFR (CKD-EPI)NonAf 31.62 Random Glucose 105 Calcium 8.3 L Total Bilirubin 0.5 AST 29 ALT 20 Alkaline Phosphatase 70 Ammonia 41.40 H Total Protein 6.8 Albumin 3.2 L Urine Color Urine Appearance Urine pH Ur Specific [place] Urine Protein Urine Glucose (UA) Urine Ketones Urine Blood Urine Nitrite Urine Bilirubin Urine Urobilinogen Ur Leukocyte Esterase RPR Titer Nonreactive HIV 1&2 Antibody Screen HIV P24 Antigen TB (QFT) Incubation TB Test (QFT) Nil TB Test (QFT) Mitogen TB Test (QFT) Antigen TB Test (QFT) TB Positive Criteria 08/16/19 08/21/19 08/21/19 07:40 08:20 11:50 WBC RBC Hgb Hct MCV MCH MCHC RDW Plt Count MPV Sodium Potassium 4.2 Chloride Carbon Dioxide Anion Gap BUN Creatinine Est GFR (CKD-EPI)AfAm Est GFR (CKD-EPI)NonAf Random Glucose Calcium Total Bilirubin AST ALT Alkaline Phosphatase Ammonia 32.30 H Total Protein Albumin Urine Color Yellow Urine Appearance Clear Urine pH 5.0 Ur Specific [place] 1.022 Urine Protein Negative Urine Glucose (UA) Negative Urine Ketones Negative Urine Blood Negative Urine Nitrite Negative Urine Bilirubin Negative Urine Urobilinogen 0.2 Ur Leukocyte Esterase Negative RPR Titer HIV 1&2 Antibody Screen HIV P24 Antigen TB (QFT) Incubation TB Test (QFT) Nil TB Test (QFT) Mitogen TB Test (QFT) Antigen TB Test (QFT) TB Positive Criteria 08/22/19 08/22/19 09:33 09:33 WBC 6.8 RBC 3.37 L Hgb 11.0 L Hct 33.7 L D MCV 99.8 H MCH 32.7 MCHC 32.8 RDW 17.3 H Plt Count 375 D MPV 8.9 D Sodium 141 Potassium 4.2 Chloride 109 H Carbon Dioxide 23 Anion Gap 9 BUN 16.0 Creatinine 0.9 Est GFR (CKD-EPI)AfAm 102.07 Est GFR (CKD-EPI)NonAf 88.07 Random Glucose 79 Calcium 8.2 L Total Bilirubin 0.5 AST 110 H ALT 91 H Alkaline Phosphatase 72 Ammonia Total Protein 6.1 L Albumin 2.9 L Urine Color Urine Appearance Urine pH Ur Specific [place] Urine Protein Urine Glucose (UA) Urine Ketones Urine Blood Urine Nitrite Urine Bilirubin Urine Urobilinogen Ur Leukocyte Esterase RPR Titer HIV 1&2 Antibody Screen HIV P24 Antigen TB (QFT) Incubation TB Test (QFT) Nil TB Test (QFT) Mitogen TB Test (QFT) Antigen TB Test (QFT) TB Positive Criteria Abdomen:Soft, nt,nd A/P Diarrhea-unresolved D/w pt CMP,CBC Stool CS ordered. Lomotil x 1 given this morning to monitor for effect. Lomotil 1 tab po Q8H prn for diarrhea will d/c Bentyl Pt agreed with poc
[2019-08-25] MEDS: THIAMINE HCL 100 MG TABLET (FP) PO SCH (21:32)
[2019-08-25] MEDS: ATORVASTATIN CA 10 MG TABLET (FP) PO SCH (21:32)
[2019-08-25] MEDS: MELATONIN 5 MG TABLETS PO PRN (21:33)
[2019-08-26] MEDS: LEVOTHYROXINE NA 88 MCG TABLET (FP) PO SCH (06:21)
[2019-08-26] MEDS: DIPHENOXYLATE 2.5/ATROPINE.025 1 COMBO TABLET PO PRN ×2 (06:22→21:27)
[2019-08-26 10:04] LABS: BILIRUBIN,TOTAL 0.5 mg/dL (0.2-1); CALCIUM 8.8 mg/dL (8.5-10.1); POTASSIUM 4.8 mmol/L (3.5-5.1); TOT PROT 6.6 g/dl (6.4-8.2)
[2019-08-26 10:20] LABS: HEMATOCRIT 32.6 % (35.4-49); MCH 33.7 pg (25.7-33.7); MCHC 33.7 g/dl (32.0-35.9); MEAN PLT VOLUME 9.9 fl (7.5-11.1); PLATELET COUNT 379 K/MM3 (134-434); RBC 3.26 M/mm3 (4.00-5.60); RDW 17.2 % (11.9-15.9); WHITE BLOOD COUNT 8.1 K/mm3 (4.0-10.0)
[2019-08-26] MEDS: metoPROLOL SUCCINATE 25 MG TAB.SR.24H (FP) PO SCH (10:22)
[2019-08-26] MEDS: RANITIDINE HCL 150 MG TABLET (FP) PO SCH ×2 (10:22→21:25)
[2019-08-26] MEDS: CALAMINE 8% TOPICAL LOTION 177 ML BOTTLE TP SCH ×2 (10:22→21:24)
[2019-08-26] MEDS: TIOTROPIUM BROMIDE 2.5 MCG (SPIRIVA) RESPIMAT INHALER IH SCH (10:22)
[2019-08-26] MEDS: PRENATAL VITAMINS W/ FOLIC ACID TABLET (FP) PO SCH (10:22)
[2019-08-26] MEDS: ALLOPURINOL 100 MG TABLET (FP) PO SCH (10:22)
[2019-08-26] MEDS: HYDROCORTISONE 2.5% TOPICAL CREAM 30 GM TUBE TP SCH ×2 (10:23→21:24)
[2019-08-26] MEDS: NICOTINE 21 MG/24 HOURS TOPICAL PATCH TD SCH (10:23)
[2019-08-26] MEDS: ALBUTEROL SO4 8 GM HFA INHALER IH PRN (10:25)
--- NOTE | 2019-08-26 12:19 | PN ---
[facility] Progress Note Note: Pt c/o GI problems-continues to report watery to soft/slightly formed stool. Reports "no blood in stool, [place] to yellow color and long stool sometimes". Pt was started on lomotil prn with some effect but pt continues to request when can I get it. Pt has been instructed on the appropriate use of anti-diarrheal medications to avoid constipation and fecal impaction. Pt reports going once yesterday and twice today. Reports none over the weekend. Pt appears to be a poor historian and has episodes of forgetting he had spoken to provider(s) about the diarrhea issue and treatment modality. Pt states he has this now for two weeks and concerned about it. Pt has been instructed on several occasions to follow up with the nurse after each BM for monitoring the consistency and necessity of medication. Pt was offered to be evaluated in the ER if this is causing hiim so much discomfort but he declined, stating "I'll see today how i do with the medicine i'm getting now. If it's not better by tomorrow, I'll let you know if i want to go". Pt is alert o x 3, oob, afebrile,denies stomach pain at this time. Vital Signs - 24 hr 08/26/19 08/26/19 08/26/19 00:30 03:30 06:54 Temperature 98.0 F Pulse Rate 85 Respiratory 18 18 18 Rate Blood Pressure 96/69 Laboratory Tests 08/13/19 08/13/19 08/13/19 07:45 07:45 07:45 WBC 5.7 RBC 4.02 Hgb 13.2 Hct 40.0 MCV 99.4 H MCH 32.7 MCHC 32.9 RDW 17.5 H Plt Count 127 L MPV 9.9 Sodium Potassium Chloride Carbon Dioxide Anion Gap BUN Creatinine Est GFR (CKD-EPI)AfAm Est GFR (CKD-EPI)NonAf Random Glucose Calcium Total Bilirubin AST ALT Alkaline Phosphatase Ammonia Total Protein Albumin Urine Color Urine Appearance Urine pH Ur Specific [place] Urine Protein Urine Glucose (UA) Urine Ketones Urine Blood Urine Nitrite Urine Bilirubin Urine Urobilinogen Ur Leukocyte Esterase RPR Titer HIV 1&2 Antibody Screen Negative HIV P24 Antigen Negative TB (QFT) Incubation TB Test (QFT) Nil 0.03 TB Test (QFT) Mitogen >10.00 TB Test (QFT) Antigen 0.03 TB Test (QFT) Negative TB Positive Criteria 08/13/19 08/13/19 08/13/19 07:45 07:45 11:45 WBC RBC Hgb Hct MCV MCH MCHC RDW Plt Count MPV Sodium 136 Potassium 3.3 L Chloride 97 L Carbon Dioxide 30 Anion Gap 9 BUN 19.2 H Creatinine 2.1 H Est GFR (CKD-EPI)AfAm 36.65 Est GFR (CKD-EPI)NonAf 31.62 Random Glucose 105 Calcium 8.3 L Total Bilirubin 0.5 AST 29 ALT 20 Alkaline Phosphatase 70 Ammonia 41.40 H Total Protein 6.8 Albumin 3.2 L Urine Color Urine Appearance Urine pH Ur Specific [place] Urine Protein Urine Glucose (UA) Urine Ketones Urine Blood Urine Nitrite Urine Bilirubin Urine Urobilinogen Ur Leukocyte Esterase RPR Titer Nonreactive HIV 1&2 Antibody Screen HIV P24 Antigen TB (QFT) Incubation TB Test (QFT) Nil TB Test (QFT) Mitogen TB Test (QFT) Antigen TB Test (QFT) TB Positive Criteria 08/16/19 08/21/19 08/21/19 07:40 08:20 11:50 WBC RBC Hgb Hct MCV MCH MCHC RDW Plt Count MPV Sodium Potassium 4.2 Chloride Carbon Dioxide Anion Gap BUN Creatinine Est GFR (CKD-EPI)AfAm Est GFR (CKD-EPI)NonAf Random Glucose Calcium Total Bilirubin AST ALT Alkaline Phosphatase Ammonia 32.30 H Total Protein Albumin Urine Color Yellow Urine Appearance Clear Urine pH 5.0 Ur Specific [place] 1.022 Urine Protein Negative Urine Glucose (UA) Negative Urine Ketones Negative Urine Blood Negative Urine Nitrite Negative Urine Bilirubin Negative Urine Urobilinogen 0.2 Ur Leukocyte Esterase Negative RPR Titer HIV 1&2 Antibody Screen HIV P24 Antigen TB (QFT) Incubation TB Test (QFT) Nil TB Test (QFT) Mitogen TB Test (QFT) Antigen TB Test (QFT) TB Positive Criteria 08/22/19 08/22/19 08/26/19 09:33 09:33 08:00 WBC 6.8 8.1 RBC 3.37 L 3.26 L Hgb 11.0 L 11.0 L Hct 33.7 L D 32.6 L MCV 99.8 H 100.0 H MCH 32.7 33.7 MCHC 32.8 33.7 RDW 17.3 H 17.2 H Plt Count 375 D 379 MPV 8.9 D 9.9 D Sodium 141 Potassium 4.2 Chloride 109 H Carbon Dioxide 23 Anion Gap 9 BUN 16.0 Creatinine 0.9 Est GFR (CKD-EPI)AfAm 102.07 Est GFR (CKD-EPI)NonAf 88.07 Random Glucose 79 Calcium 8.2 L Total Bilirubin 0.5 AST 110 H ALT 91 H Alkaline Phosphatase 72 Ammonia Total Protein 6.1 L Albumin 2.9 L Urine Color Urine Appearance Urine pH Ur Specific [place] Urine Protein Urine Glucose (UA) Urine Ketones Urine Blood Urine Nitrite Urine Bilirubin Urine Urobilinogen Ur Leukocyte Esterase RPR Titer HIV 1&2 Antibody Screen HIV P24 Antigen TB (QFT) Incubation TB Test (QFT) Nil TB Test (QFT) Mitogen TB Test (QFT) Antigen TB Test (QFT) TB Positive Criteria 08/26/19 08:00 WBC RBC Hgb Hct MCV MCH MCHC RDW Plt Count MPV Sodium 137 Potassium 4.8 Chloride 107 Carbon Dioxide 23 Anion Gap 7 L BUN 15.0 Creatinine 1.0 Est GFR (CKD-EPI)AfAm 89.86 Est GFR (CKD-EPI)NonAf 77.54 Random Glucose 88 Calcium 8.8 Total Bilirubin 0.5 AST 42 H ALT 54 Alkaline Phosphatase 79 Ammonia Total Protein 6.6 Albumin 3.0 L Urine Color Urine Appearance Urine pH Ur Specific [place] Urine Protein Urine Glucose (UA) Urine Ketones Urine Blood Urine Nitrite Urine Bilirubin Urine Urobilinogen Ur Leukocyte Esterase RPR Titer HIV 1&2 Antibody Screen HIV P24 Antigen TB (QFT) Incubation TB Test (QFT) Nil TB Test (QFT) Mitogen TB Test (QFT) Antigen TB Test (QFT) TB Positive Criteria Repeat labs grossly unchanged Borderline low H/H Abdomen:soft,+bs,nt,nd Extremities:No edema Plan:Continue Lomotil prn as directed follow up with Stool culture Feosol 325 mg po daily Refer to [facility] for evaluation if sx continues Pt will follow up with PCP Dr. Traci Upton after discharge from rehab @ [address] [place] [address] Ph: Date:09/12/19
[2019-08-26] MEDS: ATORVASTATIN CA 10 MG TABLET (FP) PO SCH (21:25)
[2019-08-26] MEDS: THIAMINE HCL 100 MG TABLET (FP) PO SCH (21:25)
[2019-08-26] MEDS: MELATONIN 5 MG TABLETS PO PRN (21:25)
[2019-08-27] MEDS: LEVOTHYROXINE NA 88 MCG TABLET (FP) PO SCH (06:28)
[2019-08-27] MEDS: DIPHENOXYLATE 2.5/ATROPINE.025 1 COMBO TABLET PO PRN (06:30)
[2019-08-27] MEDS: RANITIDINE HCL 150 MG TABLET (FP) PO SCH ×2 (10:11→21:24)
[2019-08-27] MEDS: metoPROLOL SUCCINATE 25 MG TAB.SR.24H (FP) PO SCH (10:11)
[2019-08-27] MEDS: PRENATAL VITAMINS W/ FOLIC ACID TABLET (FP) PO SCH (10:11)
[2019-08-27] MEDS: ALLOPURINOL 100 MG TABLET (FP) PO SCH (10:11)
[2019-08-27] MEDS: CALAMINE 8% TOPICAL LOTION 177 ML BOTTLE TP SCH ×2 (10:13→21:24)
[2019-08-27] MEDS: NICOTINE 21 MG/24 HOURS TOPICAL PATCH TD SCH (10:13)
[2019-08-27] MEDS: HYDROCORTISONE 2.5% TOPICAL CREAM 30 GM TUBE TP SCH ×2 (10:13→21:24)
--- NOTE | 2019-08-27 10:42 | PN ---
Psychiatric Progress Note Vital Signs: Vital Signs Period Temp Pulse Resp BP Sys/[place] Pulse Ox Last 24 Hr 98.0 F 83-86 18 126/71 Date of Session: 08/27/19 Chief Complaint:: " I have anxiety and i'm not sleeping much." HPI: Patient admitted to for acohol dependence. ROS: Patient is coherent, alert +oriented X3. Current Medications: Active Medications Generic Name Dose Route Start Last Admin Trade Name Freq PRN Reason Stop Dose Admin Acetaminophen 650 mg 08/12/19 19:43 08/17/19 10:37 Tylenol - PO 650 mg Q6H PRN Administration PAIN LEVEL 4 - 6 Acetaminophen 650 mg 08/12/19 19:43 Tylenol - PO Q6H PRN FEVER Albuterol Sulfate 2 puff 08/12/19 20:22 08/26/19 10:25 Ventolin Hfa Inhaler - IH 2 puff Q6H PRN Administration SHORTNESS OF BREATH Allopurinol 100 mg 08/13/19 10:00 08/27/19 10:11 Zyloprim - PO 100 mg DAILY FABIAN Administration Atorvastatin Calcium 10 mg 08/12/19 22:00 08/26/19 21:25 Lipitor - PO 10 mg HS FABIAN Administration Bismuth Subsalicylate 524 mg 08/12/19 19:43 08/21/19 22:49 Pepto-Bismol - PO 524 mg Q1H PRN Administration DIARRHEA Calamine 1 applic 08/12/19 22:00 08/27/19 10:13 Calamine 8% Topical Lotion - TP Not Given BID FABIAN Diphenoxylate HCl/Atropine 1 combo 08/25/19 12:50 08/27/19 06:30 Lomotil - PO 1 combo Q8H PRN Administration DIARRHEA Hydrocortisone 1 applic 08/18/19 22:00 08/27/19 10:13 Anusol 2.5% Hc Cream - TP Not Given BID FABIAN Levothyroxine Sodium 88 mcg 08/13/19 07:00 08/27/19 06:28 Synthroid - PO 88 mcg DAILY@0700 FABIAN Administration Melatonin 10 mg 08/16/19 13:06 08/26/19 21:25 Melatonin PO 10 mg HS PRN Administration INSOMNIA Metoprolol Succinate 25 mg 08/13/19 11:24 08/27/19 10:11 Toprol Xl - PO 25 mg DAILY FABIAN Administration Nicotine 21 mg 08/13/19 10:00 08/27/19 10:13 Nicoderm Patch - TD Not Given DAILY FABIAN Multivit/Folic Acid/Iron 1 tab 08/13/19 10:00 08/27/19 10:11 Vitamins (Sjr) - PO 1 tab DAILY FABIAN Administration Ranitidine HCl 150 mg 08/13/19 11:45 08/27/19 10:11 Zantac - PO 150 mg BID FABIAN Administration Thiamine HCl 100 mg 08/12/19 22:00 08/26/19 21:25 Vitamin B1 - PO 100 mg HS FABIAN Administration Tiotropium [place] 2 puff 08/13/19 10:00 08/26/19 10:22 Spiriva Respimat IH 2 puff DAILY FABIAN Administration Witch [place]/Glycerin 1 pad 08/16/19 16:11 Tucks Pads - TP PRN PRN HEMORRHOIDS Medication(s) Change(s): Yes. Current Side Effect: No Lab tests ordered: No Provider note:: Patient seen by Dr. Finley while in detox. Dr. Finley note read and appreciated. Patient reports anxiety when attending specific groups on the unit. Stated that because of his anxiety he may have to miss some groups but is willing to accept an anti-anxiety medication so that he can continue to attend all groups. Stated that his anxiety has been treated in the past with buspar by his PCP but states that buspar was ineffective. In addition patient reports poor sleep despite accepting melatonin 10mg. He reports sleeping until 2am the last several nights and had difficulty returning to sleep. Patient reports taking trazodone in the past but stated that it was ineffective. Structures Engineer discussed the properties of vistaril and belsomra with patient. Will order Vistaril 25mg q8h for anxiety and Belsomra 10mg HS PRN . Will also d/c melatonin 10mg and order melatonin 5mg HS. Benefits and side effects dicussed. Verbal consent given. Total face to face time:: 25 Mental Status Exam - Mental Status Exam Alert and Oriented to: Time, Place, Person Cognitive Function: Good Patient Appearance: Well Groomed Mood: Euthymic Affect: Mood Congruent Patient Behavior: Appropriate, Cooperative Speech Pattern: Appropriate Thought Process: Goal Oriented Thought Disorder: Not Present Hallucinations: Denies Suicidal Ideation: Denies Homicidal Ideation: Denies Insight/Judgement: Poor Sleep: Poorly Appetite: Fair Muscle strength/Tone: Normal Gait/Station: Normal Psychiatric Treatment Plan - Problem List (1) Alcohol withdrawal Current Visit: Yes (2) Insomnia Current Visit: Yes
[2019-08-27] MEDS: hydrOXYzine PAMOATE 25 MG CAPSULE (FP) PO PRN ×2 (11:12→21:26)
[2019-08-27] MEDS: TIOTROPIUM BROMIDE 2.5 MCG (SPIRIVA) RESPIMAT INHALER IH SCH (12:30)
[2019-08-27] MEDS: ATORVASTATIN CA 10 MG TABLET (FP) PO SCH (21:24)
[2019-08-27] MEDS: THIAMINE HCL 100 MG TABLET (FP) PO SCH (21:24)
[2019-08-27] MEDS: SUVOREXANT 10 MG TABLET PO PRN (21:26)
[2019-08-27] MEDS: MELATONIN 5 MG TABLETS PO PRN (21:27)
[2019-08-28] MEDS: LEVOTHYROXINE NA 88 MCG TABLET (FP) PO SCH (07:05)
[2019-08-28] MEDS: DIPHENOXYLATE 2.5/ATROPINE.025 1 COMBO TABLET PO PRN (07:43)
[2019-08-28] MEDS: RANITIDINE HCL 150 MG TABLET (FP) PO SCH ×2 (09:29→21:17)
[2019-08-28] MEDS: PRENATAL VITAMINS W/ FOLIC ACID TABLET (FP) PO SCH (09:29)
[2019-08-28] MEDS: hydrOXYzine PAMOATE 25 MG CAPSULE (FP) PO PRN (09:29)
[2019-08-28] MEDS: metoPROLOL SUCCINATE 25 MG TAB.SR.24H (FP) PO SCH (09:29)
[2019-08-28] MEDS: ALLOPURINOL 100 MG TABLET (FP) PO SCH (09:30)
[2019-08-28] MEDS: TIOTROPIUM BROMIDE 2.5 MCG (SPIRIVA) RESPIMAT INHALER IH SCH (09:30)
[2019-08-28] MEDS: HYDROCORTISONE 2.5% TOPICAL CREAM 30 GM TUBE TP SCH ×2 (09:31→21:18)
[2019-08-28] MEDS: CALAMINE 8% TOPICAL LOTION 177 ML BOTTLE TP SCH ×2 (09:31→21:19)
[2019-08-28] MEDS: NICOTINE 21 MG/24 HOURS TOPICAL PATCH TD SCH (09:31)
[2019-08-28] MEDS: ATORVASTATIN CA 10 MG TABLET (FP) PO SCH (21:17)
[2019-08-28] MEDS: THIAMINE HCL 100 MG TABLET (FP) PO SCH (21:17)
[2019-08-28] MEDS: MELATONIN 5 MG TABLETS PO PRN (21:18)
[2019-08-28] MEDS: SUVOREXANT 10 MG TABLET PO PRN (21:20)
[2019-08-29] MEDS: LEVOTHYROXINE NA 88 MCG TABLET (FP) PO SCH (06:15)
[2019-08-29] MEDS: TIOTROPIUM BROMIDE 2.5 MCG (SPIRIVA) RESPIMAT INHALER IH SCH (09:38)
[2019-08-29] MEDS: hydrOXYzine PAMOATE 25 MG CAPSULE (FP) PO PRN (09:39)
[2019-08-29] MEDS: ALLOPURINOL 100 MG TABLET (FP) PO SCH (09:39)
[2019-08-29] MEDS: PRENATAL VITAMINS W/ FOLIC ACID TABLET (FP) PO SCH (09:39)
[2019-08-29] MEDS: RANITIDINE HCL 150 MG TABLET (FP) PO SCH ×2 (09:39→21:24)
[2019-08-29] MEDS: metoPROLOL SUCCINATE 25 MG TAB.SR.24H (FP) PO SCH (09:39)
[2019-08-29] MEDS: HYDROCORTISONE 2.5% TOPICAL CREAM 30 GM TUBE TP SCH ×2 (09:40→21:24)
[2019-08-29] MEDS: NICOTINE 21 MG/24 HOURS TOPICAL PATCH TD SCH (09:40)
[2019-08-29] MEDS: CALAMINE 8% TOPICAL LOTION 177 ML BOTTLE TP SCH ×2 (09:42→21:24)
--- NOTE | 2019-08-29 12:15 | PN ---
[facility] Progress Note Note: Pt reports he is doing better with his bowel movement for past 2 days. pt reports no diarrhea. Use of anti-diarrhea medications reiterated to patient. Pt wants to go back to his regular diet. Laboratory Tests 08/13/19 08/13/19 08/13/19 07:45 07:45 07:45 WBC 5.7 RBC 4.02 Hgb 13.2 Hct 40.0 MCV 99.4 H MCH 32.7 MCHC 32.9 RDW 17.5 H Plt Count 127 L MPV 9.9 Sodium Potassium Chloride Carbon Dioxide Anion Gap BUN Creatinine Est GFR (CKD-EPI)AfAm Est GFR (CKD-EPI)NonAf Random Glucose Calcium Total Bilirubin AST ALT Alkaline Phosphatase Ammonia Total Protein Albumin Urine Color Urine Appearance Urine pH Ur Specific [place] Urine Protein Urine Glucose (UA) Urine Ketones Urine Blood Urine Nitrite Urine Bilirubin Urine Urobilinogen Ur Leukocyte Esterase RPR Titer HIV 1&2 Antibody Screen Negative HIV P24 Antigen Negative TB (QFT) Incubation TB Test (QFT) Nil 0.03 TB Test (QFT) Mitogen >10.00 TB Test (QFT) Antigen 0.03 TB Test (QFT) Negative TB Positive Criteria 08/13/19 08/13/19 08/13/19 07:45 07:45 11:45 WBC RBC Hgb Hct MCV MCH MCHC RDW Plt Count MPV Sodium 136 Potassium 3.3 L Chloride 97 L Carbon Dioxide 30 Anion Gap 9 BUN 19.2 H Creatinine 2.1 H Est GFR (CKD-EPI)AfAm 36.65 Est GFR (CKD-EPI)NonAf 31.62 Random Glucose 105 Calcium 8.3 L Total Bilirubin 0.5 AST 29 ALT 20 Alkaline Phosphatase 70 Ammonia 41.40 H Total Protein 6.8 Albumin 3.2 L Urine Color Urine Appearance Urine pH Ur Specific [place] Urine Protein Urine Glucose (UA) Urine Ketones Urine Blood Urine Nitrite Urine Bilirubin Urine Urobilinogen Ur Leukocyte Esterase RPR Titer Nonreactive HIV 1&2 Antibody Screen HIV P24 Antigen TB (QFT) Incubation TB Test (QFT) Nil TB Test (QFT) Mitogen TB Test (QFT) Antigen TB Test (QFT) TB Positive Criteria 08/16/19 08/21/19 08/21/19 07:40 08:20 11:50 WBC RBC Hgb Hct MCV MCH MCHC RDW Plt Count MPV Sodium Potassium 4.2 Chloride Carbon Dioxide Anion Gap BUN Creatinine Est GFR (CKD-EPI)AfAm Est GFR (CKD-EPI)NonAf Random Glucose Calcium Total Bilirubin AST ALT Alkaline Phosphatase Ammonia 32.30 H Total Protein Albumin Urine Color Yellow Urine Appearance Clear Urine pH 5.0 Ur Specific [place] 1.022 Urine Protein Negative Urine Glucose (UA) Negative Urine Ketones Negative Urine Blood Negative Urine Nitrite Negative Urine Bilirubin Negative Urine Urobilinogen 0.2 Ur Leukocyte Esterase Negative RPR Titer HIV 1&2 Antibody Screen HIV P24 Antigen TB (QFT) Incubation TB Test (QFT) Nil TB Test (QFT) Mitogen TB Test (QFT) Antigen TB Test (QFT) TB Positive Criteria 08/22/19 08/22/19 08/26/19 09:33 09:33 08:00 WBC 6.8 8.1 RBC 3.37 L 3.26 L Hgb 11.0 L 11.0 L Hct 33.7 L D 32.6 L MCV 99.8 H 100.0 H MCH 32.7 33.7 MCHC 32.8 33.7 RDW 17.3 H 17.2 H Plt Count 375 D 379 MPV 8.9 D 9.9 D Sodium 141 Potassium 4.2 Chloride 109 H Carbon Dioxide 23 Anion Gap 9 BUN 16.0 Creatinine 0.9 Est GFR (CKD-EPI)AfAm 102.07 Est GFR (CKD-EPI)NonAf 88.07 Random Glucose 79 Calcium 8.2 L Total Bilirubin 0.5 AST 110 H ALT 91 H Alkaline Phosphatase 72 Ammonia Total Protein 6.1 L Albumin 2.9 L Urine Color Urine Appearance Urine pH Ur Specific [place] Urine Protein Urine Glucose (UA) Urine Ketones Urine Blood Urine Nitrite Urine Bilirubin Urine Urobilinogen Ur Leukocyte Esterase RPR Titer HIV 1&2 Antibody Screen HIV P24 Antigen TB (QFT) Incubation TB Test (QFT) Nil TB Test (QFT) Mitogen TB Test (QFT) Antigen TB Test (QFT) TB Positive Criteria 08/26/19 08:00 WBC RBC Hgb Hct MCV MCH MCHC RDW Plt Count MPV Sodium 137 Potassium 4.8 Chloride 107 Carbon Dioxide 23 Anion Gap 7 L BUN 15.0 Creatinine 1.0 Est GFR (CKD-EPI)AfAm 89.86 Est GFR (CKD-EPI)NonAf 77.54 Random Glucose 88 Calcium 8.8 Total Bilirubin 0.5 AST 42 H ALT 54 Alkaline Phosphatase 79 Ammonia Total Protein 6.6 Albumin 3.0 L Urine Color Urine Appearance Urine pH Ur Specific [place] Urine Protein Urine Glucose (UA) Urine Ketones Urine Blood Urine Nitrite Urine Bilirubin Urine Urobilinogen Ur Leukocyte Esterase RPR Titer HIV 1&2 Antibody Screen HIV P24 Antigen TB (QFT) Incubation TB Test (QFT) Nil TB Test (QFT) Mitogen TB Test (QFT) Antigen TB Test (QFT) TB Positive Criteria Microbiology 08/26/19 13:40 Stool Salmonella/Shigella Culture - Final NO GROWTH OF SALMONELLA OR SHIGELLA SPECIES OBTAINED 08/26/19 13:40 Stool Yersinia Culture - Preliminary NO ENTERIC PATHOGENS, 24 HOURS, ON PRIMARY PLATES 08/26/19 13:40 Stool Vibrio Culture - Final NO GROWTH OF VIBRIO SPECIES OBTAINED 08/26/19 13:40 Stool Escherichia coli 0157 Culture - Final NO GROWTH OF E COLI 0157 OBTAINED Labs noted/stool culture noted as wnl A/P Diarrhea resolving D/C Brat diet continue with Regular AGUSTIN diet with Suplena supplementation. Encourage po fluids as tolerated. D/c Lomotil Imodium prn as directed
[2019-08-29] MEDS: THIAMINE HCL 100 MG TABLET (FP) PO SCH (21:24)
[2019-08-29] MEDS: ATORVASTATIN CA 10 MG TABLET (FP) PO SCH (21:24)
[2019-08-29] MEDS: MELATONIN 5 MG TABLETS PO PRN (21:25)
[2019-08-29] MEDS ORDERED: SUVOREXANT 10 MG TABLET PO PRN (22:00)
[2019-08-30] MEDS: LEVOTHYROXINE NA 88 MCG TABLET (FP) PO SCH (06:36)
[2019-08-30] MEDS: PRENATAL VITAMINS W/ FOLIC ACID TABLET (FP) PO SCH (10:54)
[2019-08-30] MEDS: metoPROLOL SUCCINATE 25 MG TAB.SR.24H (FP) PO SCH (10:55)
[2019-08-30] MEDS: TIOTROPIUM BROMIDE 2.5 MCG (SPIRIVA) RESPIMAT INHALER IH SCH (10:56)
[2019-08-30] MEDS: NICOTINE 21 MG/24 HOURS TOPICAL PATCH TD SCH (10:57)
[2019-08-30] MEDS: CALAMINE 8% TOPICAL LOTION 177 ML BOTTLE TP SCH ×2 (10:57→21:57)
[2019-08-30] MEDS: ALLOPURINOL 100 MG TABLET (FP) PO SCH (10:59)
[2019-08-30] MEDS: RANITIDINE HCL 150 MG TABLET (FP) PO SCH ×2 (11:00→21:57)
[2019-08-30] MEDS: HYDROCORTISONE 2.5% TOPICAL CREAM 30 GM TUBE TP SCH ×2 (11:03→21:58)
[2019-08-30] MEDS: ATORVASTATIN CA 10 MG TABLET (FP) PO SCH (21:57)
[2019-08-30] MEDS: THIAMINE HCL 100 MG TABLET (FP) PO SCH (21:57)
[2019-08-30] MEDS: MELATONIN 5 MG TABLETS PO PRN (21:57)
[2019-08-31] MEDS: LEVOTHYROXINE NA 88 MCG TABLET (FP) PO SCH (06:36)
[2019-08-31] MEDS: CALAMINE 8% TOPICAL LOTION 177 ML BOTTLE TP SCH ×2 (10:03→21:37)
[2019-08-31] MEDS: HYDROCORTISONE 2.5% TOPICAL CREAM 30 GM TUBE TP SCH ×2 (10:04→21:37)
[2019-08-31] MEDS: NICOTINE 21 MG/24 HOURS TOPICAL PATCH TD SCH (10:04)
[2019-08-31] MEDS: PRENATAL VITAMINS W/ FOLIC ACID TABLET (FP) PO SCH (10:05)
[2019-08-31] MEDS: RANITIDINE HCL 150 MG TABLET (FP) PO SCH ×2 (10:05→21:35)
[2019-08-31] MEDS: ALLOPURINOL 100 MG TABLET (FP) PO SCH (10:05)
[2019-08-31] MEDS: TIOTROPIUM BROMIDE 2.5 MCG (SPIRIVA) RESPIMAT INHALER IH SCH (10:05)
[2019-08-31] MEDS: metoPROLOL SUCCINATE 25 MG TAB.SR.24H (FP) PO SCH (10:06)
[2019-08-31] MEDS: LOPERAMIDE HCL 2 MG CAPSULE PO PRN ×2 (10:07→21:36)
[2019-08-31] MEDS: MELATONIN 5 MG TABLETS PO PRN (21:35)
[2019-08-31] MEDS: ATORVASTATIN CA 10 MG TABLET (FP) PO SCH (21:35)
[2019-08-31] MEDS: THIAMINE HCL 100 MG TABLET (FP) PO SCH (21:35)
[2019-09-01] MEDS: LEVOTHYROXINE NA 88 MCG TABLET (FP) PO SCH (06:12)
[2019-09-01] MEDS: LOPERAMIDE HCL 2 MG CAPSULE PO PRN (10:03)
[2019-09-01] MEDS: metoPROLOL SUCCINATE 25 MG TAB.SR.24H (FP) PO SCH (10:03)
[2019-09-01] MEDS: RANITIDINE HCL 150 MG TABLET (FP) PO SCH ×2 (10:03→21:17)
[2019-09-01] MEDS: hydrOXYzine PAMOATE 25 MG CAPSULE (FP) PO PRN ×2 (10:03→21:18)
[2019-09-01] MEDS: ALLOPURINOL 100 MG TABLET (FP) PO SCH (10:03)
[2019-09-01] MEDS: PRENATAL VITAMINS W/ FOLIC ACID TABLET (FP) PO SCH (10:03)
[2019-09-01] MEDS: TIOTROPIUM BROMIDE 2.5 MCG (SPIRIVA) RESPIMAT INHALER IH SCH (10:04)
[2019-09-01] MEDS: CALAMINE 8% TOPICAL LOTION 177 ML BOTTLE TP SCH ×2 (10:06→21:19)
[2019-09-01] MEDS: NICOTINE 21 MG/24 HOURS TOPICAL PATCH TD SCH (10:06)
[2019-09-01] MEDS: HYDROCORTISONE 2.5% TOPICAL CREAM 30 GM TUBE TP SCH ×2 (10:06→21:18)
[2019-09-01] MEDS: ATORVASTATIN CA 10 MG TABLET (FP) PO SCH (21:17)
[2019-09-01] MEDS: THIAMINE HCL 100 MG TABLET (FP) PO SCH (21:17)
[2019-09-01] MEDS: MELATONIN 5 MG TABLETS PO PRN (21:18)
[2019-09-01] MEDS ORDERED: SUVOREXANT 10 MG TABLET PO PRN (22:00)
[2019-09-02] MEDS: LEVOTHYROXINE NA 88 MCG TABLET (FP) PO SCH (06:21)
[2019-09-02] MEDS: hydrOXYzine PAMOATE 25 MG CAPSULE (FP) PO PRN ×2 (10:14→21:17)
[2019-09-02] MEDS: ALLOPURINOL 100 MG TABLET (FP) PO SCH (10:14)
[2019-09-02] MEDS: TIOTROPIUM BROMIDE 2.5 MCG (SPIRIVA) RESPIMAT INHALER IH SCH (10:15)
[2019-09-02] MEDS: RANITIDINE HCL 150 MG TABLET (FP) PO SCH ×2 (10:15→21:16)
[2019-09-02] MEDS: metoPROLOL SUCCINATE 25 MG TAB.SR.24H (FP) PO SCH (10:15)
[2019-09-02] MEDS: PRENATAL VITAMINS W/ FOLIC ACID TABLET (FP) PO SCH (10:15)
[2019-09-02] MEDS: HYDROCORTISONE 2.5% TOPICAL CREAM 30 GM TUBE TP SCH ×2 (10:16→21:15)
[2019-09-02] MEDS: NICOTINE 21 MG/24 HOURS TOPICAL PATCH TD SCH (10:16)
[2019-09-02] MEDS: CALAMINE 8% TOPICAL LOTION 177 ML BOTTLE TP SCH ×2 (10:16→21:16)
[2019-09-02] MEDS: THIAMINE HCL 100 MG TABLET (FP) PO SCH (21:16)
[2019-09-02] MEDS: MELATONIN 5 MG TABLETS PO PRN (21:16)
[2019-09-02] MEDS: ATORVASTATIN CA 10 MG TABLET (FP) PO SCH (21:16)
[2019-09-03] MEDS: LEVOTHYROXINE NA 88 MCG TABLET (FP) PO SCH (06:17)
[2019-09-03] MEDS: metoPROLOL SUCCINATE 25 MG TAB.SR.24H (FP) PO SCH (10:30)
[2019-09-03] MEDS: ALLOPURINOL 100 MG TABLET (FP) PO SCH (10:30)
[2019-09-03] MEDS: RANITIDINE HCL 150 MG TABLET (FP) PO SCH ×2 (10:30→21:23)
[2019-09-03] MEDS: PRENATAL VITAMINS W/ FOLIC ACID TABLET (FP) PO SCH (10:30)
[2019-09-03] MEDS: TIOTROPIUM BROMIDE 2.5 MCG (SPIRIVA) RESPIMAT INHALER IH SCH (10:31)
[2019-09-03] MEDS: HYDROCORTISONE 2.5% TOPICAL CREAM 30 GM TUBE TP SCH ×2 (10:31→21:22)
[2019-09-03] MEDS: CALAMINE 8% TOPICAL LOTION 177 ML BOTTLE TP SCH ×2 (10:31→21:22)
[2019-09-03] MEDS: NICOTINE 21 MG/24 HOURS TOPICAL PATCH TD SCH (10:31)
[2019-09-03] MEDS: hydrOXYzine PAMOATE 25 MG CAPSULE (FP) PO PRN (21:23)
[2019-09-03] MEDS: ATORVASTATIN CA 10 MG TABLET (FP) PO SCH (21:23)
[2019-09-03] MEDS: THIAMINE HCL 100 MG TABLET (FP) PO SCH (21:23)
[2019-09-03] MEDS: MELATONIN 5 MG TABLETS PO PRN (21:24)
[2019-09-04] MEDS: LOPERAMIDE HCL 2 MG CAPSULE PO PRN ×2 (03:25→10:12)
[2019-09-04] MEDS: LEVOTHYROXINE NA 88 MCG TABLET (FP) PO SCH (06:22)
[2019-09-04] MEDS: PRENATAL VITAMINS W/ FOLIC ACID TABLET (FP) PO SCH (10:09)
[2019-09-04] MEDS: ALLOPURINOL 100 MG TABLET (FP) PO SCH (10:10)
[2019-09-04] MEDS: TIOTROPIUM BROMIDE 2.5 MCG (SPIRIVA) RESPIMAT INHALER IH SCH (10:10)
[2019-09-04] MEDS: CALAMINE 8% TOPICAL LOTION 177 ML BOTTLE TP SCH ×2 (10:10→21:22)
[2019-09-04] MEDS: HYDROCORTISONE 2.5% TOPICAL CREAM 30 GM TUBE TP SCH ×2 (10:10→21:22)
[2019-09-04] MEDS: NICOTINE 21 MG/24 HOURS TOPICAL PATCH TD SCH (10:10)
[2019-09-04] MEDS: RANITIDINE HCL 150 MG TABLET (FP) PO SCH ×2 (10:11→21:21)
[2019-09-04] MEDS: metoPROLOL SUCCINATE 25 MG TAB.SR.24H (FP) PO SCH (10:11)
--- NOTE | 2019-09-04 12:28 | PN ---
[facility] Progress Note Note: Psychiatric nurse practitioner note: Belsoa 10mg renewed. Verbal consent given.
[2019-09-04] MEDS: THIAMINE HCL 100 MG TABLET (FP) PO SCH (21:21)
[2019-09-04] MEDS: ATORVASTATIN CA 10 MG TABLET (FP) PO SCH (21:21)
[2019-09-04] MEDS: hydrOXYzine PAMOATE 25 MG CAPSULE (FP) PO PRN (21:22)
[2019-09-04] MEDS ORDERED: SUVOREXANT 10 MG TABLET PO PRN (22:00)
[2019-09-05] MEDS: LEVOTHYROXINE NA 88 MCG TABLET (FP) PO SCH (06:19)
[2019-09-05] MEDS: NICOTINE 21 MG/24 HOURS TOPICAL PATCH TD SCH (10:28)
[2019-09-05] MEDS: metoPROLOL SUCCINATE 25 MG TAB.SR.24H (FP) PO SCH (10:28)
[2019-09-05] MEDS: hydrOXYzine PAMOATE 25 MG CAPSULE (FP) PO PRN ×2 (10:28→21:19)
[2019-09-05] MEDS: TIOTROPIUM BROMIDE 2.5 MCG (SPIRIVA) RESPIMAT INHALER IH SCH (10:28)
[2019-09-05] MEDS: PRENATAL VITAMINS W/ FOLIC ACID TABLET (FP) PO SCH (10:28)
[2019-09-05] MEDS: ALLOPURINOL 100 MG TABLET (FP) PO SCH (10:28)
[2019-09-05] MEDS: CALAMINE 8% TOPICAL LOTION 177 ML BOTTLE TP SCH ×2 (10:34→21:19)
[2019-09-05] MEDS: HYDROCORTISONE 2.5% TOPICAL CREAM 30 GM TUBE TP SCH ×2 (10:34→21:19)
--- NOTE | 2019-09-05 11:55 | PN ---
[facility] Progress Note Note: Pt reports the resolved diarrhea returned again yesterday. Received imodium. Vital Signs - 24 hr 09/05/19 09/05/19 09/05/19 00:30 03:30 06:54 Temperature 98.3 F Pulse Rate 93 H Respiratory 18 18 18 Rate Blood Pressure 108/63 Alert o x 3 nad oob ambulating with steady gait with cane
[2019-09-05] MEDS: FAMOTIDINE 20 MG TABLET PO SCH ×2 (14:57→21:19)
[2019-09-05] MEDS: RANITIDINE HCL 150 MG TABLET (FP) PO SCH (15:21)
[2019-09-05] MEDS: ATORVASTATIN CA 10 MG TABLET (FP) PO SCH (21:19)
[2019-09-05] MEDS: THIAMINE HCL 100 MG TABLET (FP) PO SCH (21:20)
[2019-09-06] MEDS: LEVOTHYROXINE NA 88 MCG TABLET (FP) PO SCH (06:15)
[2019-09-06] MEDS: FAMOTIDINE 20 MG TABLET PO SCH ×2 (09:46→21:22)
[2019-09-06] MEDS: ALLOPURINOL 100 MG TABLET (FP) PO SCH (09:46)
[2019-09-06] MEDS: PRENATAL VITAMINS W/ FOLIC ACID TABLET (FP) PO SCH (09:46)
[2019-09-06] MEDS: NICOTINE 21 MG/24 HOURS TOPICAL PATCH TD SCH (09:46)
[2019-09-06] MEDS: HYDROCORTISONE 2.5% TOPICAL CREAM 30 GM TUBE TP SCH ×2 (09:46→21:23)
[2019-09-06] MEDS: TIOTROPIUM BROMIDE 2.5 MCG (SPIRIVA) RESPIMAT INHALER IH SCH (09:46)
[2019-09-06] MEDS: CALAMINE 8% TOPICAL LOTION 177 ML BOTTLE TP SCH ×2 (09:46→21:23)
[2019-09-06] MEDS: metoPROLOL SUCCINATE 25 MG TAB.SR.24H (FP) PO SCH (09:46)
[2019-09-06] MEDS: hydrOXYzine PAMOATE 25 MG CAPSULE (FP) PO PRN (21:22)
[2019-09-06] MEDS: THIAMINE HCL 100 MG TABLET (FP) PO SCH (21:22)
[2019-09-06] MEDS: ATORVASTATIN CA 10 MG TABLET (FP) PO SCH (21:22)
[2019-09-06] MEDS: MELATONIN 5 MG TABLETS PO PRN (21:22)
[2019-09-07] MEDS: LEVOTHYROXINE NA 88 MCG TABLET (FP) PO SCH (06:18)
[2019-09-07] MEDS: CALAMINE 8% TOPICAL LOTION 177 ML BOTTLE TP SCH ×2 (09:53→21:21)
[2019-09-07] MEDS: ALLOPURINOL 100 MG TABLET (FP) PO SCH (09:53)
[2019-09-07] MEDS: HYDROCORTISONE 2.5% TOPICAL CREAM 30 GM TUBE TP SCH ×2 (09:53→21:20)
[2019-09-07] MEDS: metoPROLOL SUCCINATE 25 MG TAB.SR.24H (FP) PO SCH (09:53)
[2019-09-07] MEDS: hydrOXYzine PAMOATE 25 MG CAPSULE (FP) PO PRN ×2 (09:53→21:19)
[2019-09-07] MEDS: PRENATAL VITAMINS W/ FOLIC ACID TABLET (FP) PO SCH (09:53)
[2019-09-07] MEDS: TIOTROPIUM BROMIDE 2.5 MCG (SPIRIVA) RESPIMAT INHALER IH SCH (09:54)
[2019-09-07] MEDS: NICOTINE 21 MG/24 HOURS TOPICAL PATCH TD SCH (09:54)
[2019-09-07] MEDS: FAMOTIDINE 20 MG TABLET PO SCH ×2 (09:55→21:21)
[2019-09-07] MEDS: ATORVASTATIN CA 10 MG TABLET (FP) PO SCH (21:19)
[2019-09-07] MEDS: THIAMINE HCL 100 MG TABLET (FP) PO SCH (21:19)
[2019-09-07] MEDS: MELATONIN 5 MG TABLETS PO PRN (21:19)
[2019-09-08] MEDS: LOPERAMIDE HCL 2 MG CAPSULE PO PRN ×2 (07:07→21:42)
[2019-09-08] MEDS: LEVOTHYROXINE NA 88 MCG TABLET (FP) PO SCH (08:18)
[2019-09-08] MEDS: metoPROLOL SUCCINATE 25 MG TAB.SR.24H (FP) PO SCH (10:25)
[2019-09-08] MEDS: TIOTROPIUM BROMIDE 2.5 MCG (SPIRIVA) RESPIMAT INHALER IH SCH (10:25)
[2019-09-08] MEDS: PRENATAL VITAMINS W/ FOLIC ACID TABLET (FP) PO SCH (10:25)
[2019-09-08] MEDS: ALLOPURINOL 100 MG TABLET (FP) PO SCH (10:25)
[2019-09-08] MEDS: FAMOTIDINE 20 MG TABLET PO SCH ×2 (10:25→21:41)
[2019-09-08] MEDS: NICOTINE 21 MG/24 HOURS TOPICAL PATCH TD SCH (10:26)
[2019-09-08] MEDS: CALAMINE 8% TOPICAL LOTION 177 ML BOTTLE TP SCH ×2 (10:26→21:40)
[2019-09-08] MEDS: HYDROCORTISONE 2.5% TOPICAL CREAM 30 GM TUBE TP SCH ×2 (10:26→21:43)
[2019-09-08] MEDS: MELATONIN 5 MG TABLETS PO PRN (21:40)
[2019-09-08] MEDS: ATORVASTATIN CA 10 MG TABLET (FP) PO SCH (21:40)
[2019-09-08] MEDS: THIAMINE HCL 100 MG TABLET (FP) PO SCH (21:40)
[2019-09-08] MEDS: hydrOXYzine PAMOATE 25 MG CAPSULE (FP) PO PRN (21:41)
[2019-09-09] MEDS: LEVOTHYROXINE NA 88 MCG TABLET (FP) PO SCH (06:12)
[2019-09-09] MEDS: metoPROLOL SUCCINATE 25 MG TAB.SR.24H (FP) PO SCH (10:17)
[2019-09-09] MEDS: FAMOTIDINE 20 MG TABLET PO SCH ×2 (10:17→21:41)
[2019-09-09] MEDS: TIOTROPIUM BROMIDE 2.5 MCG (SPIRIVA) RESPIMAT INHALER IH SCH (10:17)
[2019-09-09] MEDS: ALLOPURINOL 100 MG TABLET (FP) PO SCH (10:17)
[2019-09-09] MEDS: PRENATAL VITAMINS W/ FOLIC ACID TABLET (FP) PO SCH (10:17)
[2019-09-09] MEDS: NICOTINE 21 MG/24 HOURS TOPICAL PATCH TD SCH (10:17)
[2019-09-09] MEDS: hydrOXYzine PAMOATE 25 MG CAPSULE (FP) PO PRN ×2 (10:19→21:41)
[2019-09-09] MEDS: LOPERAMIDE HCL 2 MG CAPSULE PO PRN (10:19)
[2019-09-09] MEDS: CALAMINE 8% TOPICAL LOTION 177 ML BOTTLE TP SCH ×2 (10:20→21:40)
[2019-09-09] MEDS: HYDROCORTISONE 2.5% TOPICAL CREAM 30 GM TUBE TP SCH ×2 (10:20→21:40)
[2019-09-09] MEDS: ATORVASTATIN CA 10 MG TABLET (FP) PO SCH (21:40)
[2019-09-09] MEDS: THIAMINE HCL 100 MG TABLET (FP) PO SCH (21:41)
[2019-09-09] MEDS: SUVOREXANT 10 MG TABLET PO PRN (21:42)
[2019-09-10] MEDS: LEVOTHYROXINE NA 88 MCG TABLET (FP) PO SCH (06:56)
[2019-09-10] MEDS: TIOTROPIUM BROMIDE 2.5 MCG (SPIRIVA) RESPIMAT INHALER IH SCH (10:27)
[2019-09-10] MEDS: metoPROLOL SUCCINATE 25 MG TAB.SR.24H (FP) PO SCH (10:27)
[2019-09-10] MEDS: ALLOPURINOL 100 MG TABLET (FP) PO SCH (10:27)
[2019-09-10] MEDS: PRENATAL VITAMINS W/ FOLIC ACID TABLET (FP) PO SCH (10:27)
[2019-09-10] MEDS: FAMOTIDINE 20 MG TABLET PO SCH ×2 (10:27→21:36)
[2019-09-10] MEDS: HYDROCORTISONE 2.5% TOPICAL CREAM 30 GM TUBE TP SCH ×2 (10:27→21:38)
[2019-09-10] MEDS: NICOTINE 21 MG/24 HOURS TOPICAL PATCH TD SCH (10:28)
[2019-09-10] MEDS: CALAMINE 8% TOPICAL LOTION 177 ML BOTTLE TP SCH ×2 (10:28→21:38)
[2019-09-10] MEDS: THIAMINE HCL 100 MG TABLET (FP) PO SCH (21:36)
[2019-09-10] MEDS: hydrOXYzine PAMOATE 25 MG CAPSULE (FP) PO PRN (21:36)
[2019-09-10] MEDS: ATORVASTATIN CA 10 MG TABLET (FP) PO SCH (21:36)
[2019-09-10] MEDS: MELATONIN 5 MG TABLETS PO PRN (21:36)
[2019-09-10] MEDS: SUVOREXANT 10 MG TABLET PO PRN (21:37)
[2019-09-11] MEDS: LEVOTHYROXINE NA 88 MCG TABLET (FP) PO SCH (06:21)
[2019-09-11] MEDS: TIOTROPIUM BROMIDE 2.5 MCG (SPIRIVA) RESPIMAT INHALER IH SCH (10:15)
[2019-09-11] MEDS: metoPROLOL SUCCINATE 25 MG TAB.SR.24H (FP) PO SCH (10:15)
[2019-09-11] MEDS: ALLOPURINOL 100 MG TABLET (FP) PO SCH (10:15)
[2019-09-11] MEDS: PRENATAL VITAMINS W/ FOLIC ACID TABLET (FP) PO SCH (10:15)
[2019-09-11] MEDS: NICOTINE 21 MG/24 HOURS TOPICAL PATCH TD SCH (10:16)
[2019-09-11] MEDS: HYDROCORTISONE 2.5% TOPICAL CREAM 30 GM TUBE TP SCH ×2 (10:16→21:28)
[2019-09-11] MEDS: CALAMINE 8% TOPICAL LOTION 177 ML BOTTLE TP SCH ×2 (10:16→21:28)
[2019-09-11] MEDS: FAMOTIDINE 20 MG TABLET PO SCH ×2 (10:16→21:28)
--- NOTE | 2019-09-11 12:27 | DS ---
[facility] Rehab Discharge Summary - [facility] Rehab Discharge Summary Admission Date: 08/12/19 Discharge Date: 09/12/19 - History Present History: Alcohol dependence Additional Comments: Pt is a 69 y/o male with a RILEY admitted to rehab and scheduled for discharge on 09/12/19. Pt was seen by his counselor, Ms Henryshameka Dkdudleyhaydee and has been referred to aftercare. Pt reports he has own primary care provider and will follow up after discharge from rehab. Pertinent Past History: Asthma COPD Hypertension Hypothyroidism Gout Sleep disorder - Discharge Physical Exam Vital Signs: Vital Signs Temperature 97.8 F 09/11/19 11:25 Pulse Rate 84 09/11/19 11:25 Respiratory Rate 18 09/11/19 11:25 Blood Pressure 117/69 09/11/19 11:25 O2 Sat by Pulse Oximetry (%) Alert o x 3 nad oob ambulating with steady gait cardiac:s1 s2, rrr lungs:cta,rajani. abdomen:soft,+bs,nt,nd extremities/skin:no edema,full ROM,skin intact. Pertinent Admission Physical Exam Findings: Laboratory Tests 08/13/19 08/13/19 08/13/19 07:45 07:45 07:45 WBC 5.7 RBC 4.02 Hgb 13.2 Hct 40.0 MCV 99.4 H MCH 32.7 MCHC 32.9 RDW 17.5 H Plt Count 127 L MPV 9.9 Sodium Potassium Chloride Carbon Dioxide Anion Gap BUN Creatinine Est GFR (CKD-EPI)AfAm Est GFR (CKD-EPI)NonAf Random Glucose Calcium Total Bilirubin AST ALT Alkaline Phosphatase Ammonia Total Protein Albumin Urine Color Urine Appearance Urine pH Ur Specific [place] Urine Protein Urine Glucose (UA) Urine Ketones Urine Blood Urine Nitrite Urine Bilirubin Urine Urobilinogen Ur Leukocyte Esterase RPR Titer HIV 1&2 Antibody Screen Negative HIV P24 Antigen Negative TB (QFT) Incubation TB Test (QFT) Nil 0.03 TB Test (QFT) Mitogen >10.00 TB Test (QFT) Antigen 0.03 TB Test (QFT) Negative TB Positive Criteria 08/13/19 08/13/19 08/13/19 07:45 07:45 11:45 WBC RBC Hgb Hct MCV MCH MCHC RDW Plt Count MPV Sodium 136 Potassium 3.3 L Chloride 97 L Carbon Dioxide 30 Anion Gap 9 BUN 19.2 H Creatinine 2.1 H Est GFR (CKD-EPI)AfAm 36.65 Est GFR (CKD-EPI)NonAf 31.62 Random Glucose 105 Calcium 8.3 L Total Bilirubin 0.5 AST 29 ALT 20 Alkaline Phosphatase 70 Ammonia 41.40 H Total Protein 6.8 Albumin 3.2 L Urine Color Urine Appearance Urine pH Ur Specific [place] Urine Protein Urine Glucose (UA) Urine Ketones Urine Blood Urine Nitrite Urine Bilirubin Urine Urobilinogen Ur Leukocyte Esterase RPR Titer Nonreactive HIV 1&2 Antibody Screen HIV P24 Antigen TB (QFT) Incubation TB Test (QFT) Nil TB Test (QFT) Mitogen TB Test (QFT) Antigen TB Test (QFT) TB Positive Criteria 08/16/19 08/21/19 08/21/19 07:40 08:20 11:50 WBC RBC Hgb Hct MCV MCH MCHC RDW Plt Count MPV Sodium Potassium 4.2 Chloride Carbon Dioxide Anion Gap BUN Creatinine Est GFR (CKD-EPI)AfAm Est GFR (CKD-EPI)NonAf Random Glucose Calcium Total Bilirubin AST ALT Alkaline Phosphatase Ammonia 32.30 H Total Protein Albumin Urine Color Yellow Urine Appearance Clear Urine pH 5.0 Ur Specific [place] 1.022 Urine Protein Negative Urine Glucose (UA) Negative Urine Ketones Negative Urine Blood Negative Urine Nitrite Negative Urine Bilirubin Negative Urine Urobilinogen 0.2 Ur Leukocyte Esterase Negative RPR Titer HIV 1&2 Antibody Screen HIV P24 Antigen TB (QFT) Incubation TB Test (QFT) Nil TB Test (QFT) Mitogen TB Test (QFT) Antigen TB Test (QFT) TB Positive Criteria 08/22/19 08/22/19 08/26/19 09:33 09:33 08:00 WBC 6.8 8.1 RBC 3.37 L 3.26 L Hgb 11.0 L 11.0 L Hct 33.7 L D 32.6 L MCV 99.8 H 100.0 H MCH 32.7 33.7 MCHC 32.8 33.7 RDW 17.3 H 17.2 H Plt Count 375 D 379 MPV 8.9 D 9.9 D Sodium 141 Potassium 4.2 Chloride 109 H Carbon Dioxide 23 Anion Gap 9 BUN 16.0 Creatinine 0.9 Est GFR (CKD-EPI)AfAm 102.07 Est GFR (CKD-EPI)NonAf 88.07 Random Glucose 79 Calcium 8.2 L Total Bilirubin 0.5 AST 110 H ALT 91 H Alkaline Phosphatase 72 Ammonia Total Protein 6.1 L Albumin 2.9 L Urine Color Urine Appearance Urine pH Ur Specific [place] Urine Protein Urine Glucose (UA) Urine Ketones Urine Blood Urine Nitrite Urine Bilirubin Urine Urobilinogen Ur Leukocyte Esterase RPR Titer HIV 1&2 Antibody Screen HIV P24 Antigen TB (QFT) Incubation TB Test (QFT) Nil TB Test (QFT) Mitogen TB Test (QFT) Antigen TB Test (QFT) TB Positive Criteria 08/26/19 08:00 WBC RBC Hgb Hct MCV MCH MCHC RDW Plt Count MPV Sodium 137 Potassium 4.8 Chloride 107 Carbon Dioxide 23 Anion Gap 7 L BUN 15.0 Creatinine 1.0 Est GFR (CKD-EPI)AfAm 89.86 Est GFR (CKD-EPI)NonAf 77.54 Random Glucose 88 Calcium 8.8 Total Bilirubin 0.5 AST 42 H ALT 54 Alkaline Phosphatase 79 Ammonia Total Protein 6.6 Albumin 3.0 L Urine Color Urine Appearance Urine pH Ur Specific [place] Urine Protein Urine Glucose (UA) Urine Ketones Urine Blood Urine Nitrite Urine Bilirubin Urine Urobilinogen Ur Leukocyte Esterase RPR Titer HIV 1&2 Antibody Screen HIV P24 Antigen TB (QFT) Incubation TB Test (QFT) Nil TB Test (QFT) Mitogen TB Test (QFT) Antigen TB Test (QFT) TB Positive Criteria Microbiology 08/26/19 13:40 Stool Salmonella/Shigella Culture - Final NO GROWTH OF SALMONELLA OR SHIGELLA SPECIES OBTAINED 08/26/19 13:40 Stool Campylobacter Culture - Final NO GROWTH OF CAMPYLOBACTER SPECIES OBTAINED 08/26/19 13:40 Stool Yersinia Culture - Final NO GROWTH OF YERSINIA SPECIES OBTAINED 08/26/19 13:40 Stool Vibrio Culture - Final NO GROWTH OF VIBRIO SPECIES OBTAINED 08/26/19 13:40 Stool Escherichia coli 0157 Culture - Final NO GROWTH OF E COLI 0157 OBTAINED Pt had on/off episodes of diarrhea of unknown origin from admission from detox. Diarrhea resolved at this time and has been instructed to follow up with primary care for health management. - Treatment Discharge Condition: Discharge condition good Hospital Course: Rehabilitated safely and responded well. Pt participated in groups/one on one counseling as tolerated. CD aftercare referral accepted. - Medication Discharge Medications: Ambulatory Orders Albuterol Sulfate Inhaler - 2 inhaler PO PRN PRN 08/12/19 Allopurinol [Zyloprim -] 100 mg PO DAILY 08/12/19 Folic Acid - 1 mg PO DAILY 08/12/19 Levothyroxine [Synthroid -] 1 tablet PO DAILY 08/12/19 Lovastatin 20 mg PO HS 08/12/19 Metoprolol Succinate [Toprol XL -] 1 tablet PO DAILY 08/12/19 Multivitamin [Multiple Vitamins] 1 tablet PO DAILY 08/12/19 Thiamine HCl [Vitamin B-1] 100 mg PO DAILY 08/12/19 Tiotropium [place] [Spiriva] 1 inhaler PO DAILY 08/12/19 - Medication-Assisted Treatment (MAT) Medication-Assisted Treatment (MAT): No - Discharge Instructions Diet, activity, other medical instructions: Diet:AGUSTIN Activity: oob ad flakito Other medical instructions:Follow up with primary care with [facility] Dr. Juan A Black [facility] on 09/12/19 @ 11:00 a.m. Follow up with CD aftercare with [facility] [place] as scheduled. Pt will follow up with primary care and address on/off diarrhea episodes. Pt was encouraged to follow through with colonoscopy after discharge which he states has been overdue. - Diagnosis (1) Alcohol use disorder Current Visit: Yes Status: Chronic (2) Asthma Current Visit: Yes Status: Chronic Qualifiers: Asthma persistence: unspecified (3) COPD (chronic obstructive pulmonary disease) Current Visit: Yes Status: Chronic Qualifiers: Emphysema type: unspecified (4) Gout Current Visit: Yes Status: Chronic (5) Hypertension Current Visit: Yes Status: Chronic Qualifiers: Hypertension type: essential hypertension Qualified Code(s): I10 - Essential (primary) hypertension (6) Hypothyroid Current Visit: Yes Status: Chronic Qualifiers: Hypothyroidism type: unspecified Qualified Code(s): E03.9 - Hypothyroidism , unspecified (7) Diarrhea Current Visit: Yes Status: Acute Qualifiers: Diarrhea type: unspecified type Qualified Code(s): R19.7 - Diarrhea, unspecified - Follow-up Referral Minutes to complete discharge: 30 - AMA Did Patient Leave Against Medical Advice: No Additional Comments: Pt states does not need courtesy Rx because has own at home and "going to my doctor tomorrow anyway"(09/12/19).
[2019-09-11] MEDS: ATORVASTATIN CA 10 MG TABLET (FP) PO SCH (21:28)
[2019-09-11] MEDS: THIAMINE HCL 100 MG TABLET (FP) PO SCH (21:29)
[2019-09-11] MEDS: MELATONIN 5 MG TABLETS PO PRN (21:29)
[2019-09-12] MEDS: LEVOTHYROXINE NA 88 MCG TABLET (FP) PO SCH (06:50)
[2019-09-12 07:12] VITALS: BP 138/70; PULSE 98; TEMP 97.9
--- NOTE | 2019-09-12 09:33 | PN ---
[facility] Progress Note Note: Pt is discharged today as scheduled. Alert o x 3,nad oob ambulating with steady gait. Vital Signs - 24 hr 09/11/19 09/12/19 09/12/19 11:25 00:30 07:11 Temperature 97.8 F 97.9 F Pulse Rate 84 98 H Respiratory 18 18 18 Rate Blood Pressure 117/69 138/70 09/12/19 07:12 Temperature 97.9 F Pulse Rate 98 H Respiratory 18 Rate Blood Pressure 138/70 Please see Rehab Discharge summary
[2019-09-12] MEDS: HYDROCORTISONE 2.5% TOPICAL CREAM 30 GM TUBE TP SCH (10:31)
[2019-09-12] MEDS: PRENATAL VITAMINS W/ FOLIC ACID TABLET (FP) PO SCH (10:31)
[2019-09-12] MEDS: ALLOPURINOL 100 MG TABLET (FP) PO SCH (10:31)
[2019-09-12] MEDS: metoPROLOL SUCCINATE 25 MG TAB.SR.24H (FP) PO SCH (10:31)
[2019-09-12] MEDS: FAMOTIDINE 20 MG TABLET PO SCH (10:31)
[2019-09-12] MEDS: TIOTROPIUM BROMIDE 2.5 MCG (SPIRIVA) RESPIMAT INHALER IH SCH (10:32)
[2019-09-12] MEDS: NICOTINE 21 MG/24 HOURS TOPICAL PATCH TD SCH (10:32)
[2019-09-12] MEDS: CALAMINE 8% TOPICAL LOTION 177 ML BOTTLE TP SCH (10:32)
== END 2019-09-12 11:45 | disposition home or self-care (01) | DRG 895 ==
LOC: YASAS 12:47 → Y3N 20:01 → Y5N 08-17 11:11
PROVIDERS: ADMIT Surgery; ATTEND Neuromusculoskeletal Medicine & OMM
PROC: HZ42ZZZ Group Counseling for Substance Abuse Treatment, Cognitive-Behavioral (ICD-10-PCS; principal; 2019-08-12)
DX: F10.20 Alcohol dependence, uncomplicated (principal); F10.982 Alcohol use, unspecified with alcohol-induced sleep disorder; I10 Essential (primary) hypertension; J44.9 Chronic obstructive pulmonary disease, unspecified; J45.998 Other asthma; E03.9 Hypothyroidism, unspecified; M10.9 Gout, unspecified; R19.7 Diarrhea, unspecified; Z99.89 Dependence on other enabling machines and devices
CPT/HCPCS: 36415; 80053; 81003; 82140; 84132; 85027; 86480; 86593; 87045; 87046; 87186; 87389; 93005; 93010